=== PATIENT | female | born 1955 | race Caucasian/White ===

== ENCOUNTER 2016-08-07 15:17 | Emergency (ER) | payer BC, OTHER ==
[~2016-08-07] VITALS: Ht 162.6 cm; Wt 75.0 kg
[~2016-08-07 15:17] MED LIST: ACET325T96 PO; ASPCH81X PO; BACL1TAB PO; CTP1 PO; DOCU-94 PO; FURO-85 PO; GLAT1INJ SC; GLAT1INJ SQ; HYDR-5688 PO; MISCCAP80 PO; MRN25 PO; MULT-506 PO; NRV5 PO; ONDA4TAB46 PO; PRLSR20 PO; RSPS5 PO; SERT-234 PO; TIZA2CAP PO; VNCS125 PO
[2016-08-07 15:22] VITALS: TEMP 36.6; Ht 162.6 cm; Wt 75.0 kg
--- NOTE | 2016-08-07 17:50 | EMERGENCY ROOM VISIT NOTE ---
ED Visit Note First contact with patient: 16:45 I did evaluate and examine this patient myself. I did guide management for the patient. I agree with the PA's assessment as discussed. Please see the PAs dictation for further details. I did independently review the x-rays, CAT scan , doppler ultrasound and blood work. The patient is presenting with several months of pain from her neck down her right arm. She is neurologically intact. She had some swelling recently and so sent here for an ultrasound to evaluate for clot. There is no evidence of DVT. It is unclear whether her symptoms are possibly radicular in nature. She does have some mild edematous changes on her CT scan. She was advised follow closely with her doctor. She was discharged with a prescription for [place].
--- NOTE | 2016-08-07 18:38 | EMERGENCY ROOM VISIT NOTE ---
History First contact with patient: 16:45 Chief Complaint: SWELLING TO EXTREMITY Stated Complaint: SWELLING IN RT ARM History of Present Illness The patient is a 61 year old female who presents to the Emergency Room with complaints of pain and swelling in her right arm and hand. She reports that she has had pain in her right arm for the past one month. She does have a history of blood clots and was concerned that she may have a DVT. She reports that she does have an IVC filter. She does not take blood thinners. The pain radiates throughout the entire arm. She reports it is constant and rates the discomfort an 8/10. She has a history of MS and saw her neurologist today, who recommended that she come here for further evaluation of a possible blood clot. She denies any numbness or weakness of the arm. She denies any chest pain or shortness of breath. Review of Systems A complete 10-point Review of Systems was discussed with the patient, with pertinent positives and negatives listed in the History of Present Illness. All remaining Review of Systems questions can be considered negative unless otherwise specified. Past Medical/Surgical History Medical Problems: (1) Abdominal wound dehiscence (2) C. difficile colitis (3) Dyslipidemia (4) Fibromyalgia (5) H/o mild Schatzki ring (6) H/O thoracic outlet syndrome (7) History of DVT (deep vein thrombosis) (8) History of pulmonary embolism (9) Irritable bowel syndrome (IBS) (10) Multiple sclerosis (11) Neurogenic bladder (12) Perforation of sigmoid colon due to diverticulitis (13) Stress incontinence, female Surgical Problems: (1) Colostomy in place (2) H/O colonoscopy (3) H/O cystoscopy (4) H/o EGD (5) History of colectomy (6) History of dental surgery (7) Hx of tubal ligation (8) S/P appendectomy (9) S/P IVC filter Family History Cardiac disorder FATHER FH: aortic aneurysm FATHER FH: brain aneurysm FATHER FH: cancer FATHER MOTHER (breast CA) SISTER (breast CA) Social History Smoking Status: Former Smoker Alcohol Use: none Drug Use: none Marital Status: Housing Status: lives with family Occupation Status: retired Current/Historical Medications Scheduled Amlodipine Besylate (Amlodipine Besylate), 5 MG PO QAM Aspirin (Aspirin Chewable), 81 MG PO DAILY Baclofen (Lioresal), 20 MG PO TID Docusate Sodium (Colace), 100 MG PO BID Glatiramer Acetate (Copaxone), 40 MG SQ UD Multivitamin (Multivitamin), 1 TAB PO DAILY Omeprazole (Prilosec), 20 MG PO DAILY Sertraline (Zoloft), 150 MG PO HS Tizanidine (Zanaflex), 2 MG PO TID Scheduled PRN Clonidine HCl (Clonidine HCl), 0.1 MG PO Q6H PRN for systolic bp > 170 Dronabinol (Dronabinol), 5 MG PO Q6H PRN for nausea Hydrocodone/Acetaminophen 5MG/325MG ([place] 5MG/325MG), 2 TABLETS PO Q6 PRN for Pain Hydrocodone/Acetaminophen 5MG/325MG ([place] 5MG/325MG), 1-2 TABLET PO Q4H PRN for Pain Ondansetron Hcl (Zofran), 4 MG PO Q6 PRN for Nausea Allergies Coded Allergies: Levofloxacin (Verified Allergy, Intermediate, RASH, 08/07/16) as per RN, pt had erythematous rash on abdomen, not there when i saw her pt also complasin of some chest tightness after she got levaquin Chlordiazepoxide (Verified Allergy, Unknown, unsure, 08/07/16) Morphine (Verified Allergy, Unknown, unsure, 08/07/16) has tolerated percocet Sulfa Antibiotics (Verified Allergy, Unknown, Unknown rxn, 08/07/16) Tramadol (Verified Allergy, Unknown, 08/07/16) Physical Exam Vital Signs Date Time Temp Pulse Resp B/P Pulse Ox O2 Delivery O2 Flow Rate FiO2 08/07/16 19:43 84 16 146/78 08/07/16 17:34 77 08/07/16 15:22 36.6 80 18 140/72 98 Room Air Physical Exam VITALS: Vitals are noted on the nurse's note and reviewed by myself. Vital signs stable. GENERAL: This is a 61-year-old female, in no acute distress, nondiaphoretic, well-developed well-nourished. SKIN: Capillary reflex less than 2 seconds. HEART: Regular rate and rhythm without murmurs gallops or rubs. LUNGS: Clear to auscultation bilaterally without wheezes, rales or rhonchi. MUSCULOSKELETAL: No significant tenderness over the right arm. Full range of motion of the right arm. Strength in the right arm is slightly decreased compared to the left. NEURO: Patient was alert and oriented to person place and time. Normal sensation to light and sharp touch. Medical Decision & Procedures ER Provider Diagnostic Interpretation: ULTRASOUND VENOUS DOPPLER ULTRASOUND THE RIGHT UPPER EXTREMITY FINDINGS: The examination is limited from a technical standpoint, as the patient was unable to move her arm, and could not tolerate pressure. No thrombus was visualized in the right internal jugular subclavian axillary radial or ulnar veins. Portions of the brachial basilic veins could not be visualized. IMPRESSION: 1. Technically limited study with poor visualization of portions of the brachial basilic veins. 2. No DVT identified. CT OF THE CERVICAL SPINE IMPRESSION: No evidence of acute fracture or traumatic subluxation. Laboratory Results 08/07/16 18:00 Red Blood Count 4.49, Mean Corpuscular Volume 92.7, Mean Corpuscular Hemoglobin 32.7, Mean Corpuscular Hemoglobin Concent 35.3, Mean Platelet Volume 9.9, Neutrophils (%) (Auto) 73.4, Lymphocytes (%) (Auto) 18.6, Monocytes (%) (Auto) 3.6, Eosinophils (%) (Auto) 3.4, Basophils (%) (Auto) 0.3, Neutrophils # (Auto) 7.37, Lymphocytes # (Auto) 1.87, Monocytes # (Auto) 0.36, Eosinophils # (Auto) 0.34, Basophils # (Auto) 0.03 08/07/16 18:00 Test 08/07/16 18:00 08/07/16 18:42 White Blood Count 10.04 K/uL (4.8-10.8) Red Blood Count 4.49 M/uL (4.2-5.4) Hemoglobin 14.7 g/dL (12.0-16.0) Hematocrit 41.6 % (37-47) Mean Corpuscular Volume 92.7 fL (80-100) Mean Corpuscular Hemoglobin 32.7 pg (25-34) Mean Corpuscular Hemoglobin Concent 35.3 g/dl (32-36) Platelet Count 259 K/uL (130-400) Mean Platelet Volume 9.9 fL (7.4-10.4) Neutrophils (%) (Auto) 73.4 % Lymphocytes (%) (Auto) 18.6 % Monocytes (%) (Auto) 3.6 % Eosinophils (%) (Auto) 3.4 % Basophils (%) (Auto) 0.3 % Neutrophils # (Auto) 7.37 K/uL (1.4-6.5) Lymphocytes # (Auto) 1.87 K/uL (1.2-3.4) Monocytes # (Auto) 0.36 K/uL (0.11-0.59) Eosinophils # (Auto) 0.34 K/uL (0-0.5) Basophils # (Auto) 0.03 K/uL (0-0.2) RDW Standard Deviation 50.0 fL (36.4-46.3) RDW Coefficient of Variation 14.9 % (11.5-14.5) Immature Granulocyte % (Auto) 0.7 % Immature Granulocyte # (Auto) 0.07 K/uL (0.00-0.02) Anion Gap 11.0 mmol/L (3-11) Est Creatinine Clear Calc Drug Dose 89.3 ml/min Estimated GFR () 110.1 Estimated GFR (Non- 95.0 BUN/Creatinine Ratio 34.4 (10-20) Calcium Level 9.1 mg/dl (8.5-10.1) Total Bilirubin 0.6 mg/dl (0.2-1) Aspartate Amino Transf (AST/SGOT) 26 U/L (15-37) Alanine Aminotransferase (ALT/SGPT) 44 U/L (12-78) Alkaline Phosphatase 102 U/L (45-117) Total Protein 8.4 gm/dl (6.4-8.2) Albumin 3.5 gm/dl (3.4-5.0) Globulin 4.9 gm/dl (2.5-4.0) Albumin/Globulin Ratio 0.7 (0.9-2) Prothrombin Time 10.1 SECONDS (9.0-12.0) Prothromb Time International Ratio 0.9 (0.9-1.1) Activated Partial Thromboplast Time 24.7 SECONDS (21.0-31.0) Partial Thromboplastin Ratio 1.0 Medical Decision Differential diagnosis includes DVT, cervical radiculopathy, neuropathy, trauma , among others. The patient was evaluated as above. Labs were drawn and IV access was obtained. Imaging studies were performed and read by radiology as above. The patient was reassessed multiple times during their stay in the emergency department and remained in stable condition. The patient is a 61-year-old female who presents today complaining of right arm pain. Her exam is unremarkable. Labs were performed and were unremarkable. Ultrasound of the right upper extremity was read by radiology with no evidence of DVT. The patient's symptoms are suggestive of cervical radiculopathy. CT of the cervical spine was performed and did show mild degenerative disc disease. The patient was given a short course of [place] for pain. She will follow-up with her primary care provider for further evaluation of her arm pain. Based on the patient's presentation, lab results, and imaging studies, I feel the patient is stable for outpatient treatment. The patient was independently evaluated by Dr. Michael, ED attending physician, who agreed with my assessment and treatment plan. Discharge instructions were reviewed with the patient. The patient verbalized understanding of my assessment and treatment plan and was discharged home in good condition. Impression Primary Impression: Right arm pain Departure Information Dispostion Home / Self-Care Condition GOOD Prescriptions Hydrocodone/Acetaminophen 5MG/325MG ([place] 5MG/325MG) Tab 1-2 TABLET PO Q4H Y for Pain, #15 TAB For Initial Treatment Prov: Marianne Dexter ., ABEBE 08/07/16 Referrals Zuleyma Lozano M.D. (PCP) Patient Instructions My [facility] Additional Instructions You have been prescribed [place] to be used for pain control. Take 1-2 tablets every 4-6 hours as needed for pain. This is a narcotic medication. You cannot drive or consume alcohol while on this medicine. This medicine should only be used for pain that cannot be controlled with [id number] pain medicines. For pain control, you can use the following [id number] medicines (if >12 yo): - Regular strength (325mg/tab) Tylenol (acetaminophen) 2 tabs every 4-6 hours as needed. Do not exceed 12 tablets in a 24 hour period. Avoid taking more than 4 grams (4000 mg) of Tylenol per day. This includes any other sources of acetaminophen you may take on a regular basis. - Regular strength (200 mg/tab) Advil (ibuprofen) 1-2 tabs every 4-6 hours as needed. Do not exceed a dose of 3200 mg per day. You should follow-up with your primary care provider this week for further evaluation of your arm pain. Return to the emergency department With any worsening pain, numbness, weakness or any other new/concerning symptoms.
[2016-08-07 18:44] LABS: BASO % 0.3 %; BASO ABS # 0.03 K/uL (0-0.2); COMPLETE YES; EOS % 3.4 %; HEMATOCRIT 41.6 % (37-47); IG% 0.7 %; LYMPH % 18.6 %; LYMPH ABS # 1.87 K/uL (1.2-3.4); MEAN CELL VOLUME 92.7 fL (80-100); MEAN CORPUSCULAR HEMOGLOBIN 32.7 pg (25-34); MEAN CORPUSCULAR HGB CONC 35.3 g/dl (32-36); MEAN PLATELET VOLUME 9.9 fL (7.4-10.4); MONO % 3.6 %; NEUT % 73.4 %; PLATELET COUNT 259 K/uL (130-400); RED BLOOD COUNT 4.49 M/uL (4.2-5.4); WHITE BLOOD COUNT 10.04 K/uL (4.8-10.8)
[2016-08-07 19:05] LABS: INR 0.9 (0.9-1.1); PROTHROMBIN TIME (PATIENT) 10.1 SECONDS (9.0-12.0)
[2016-08-07 19:12] LABS: BUN/CREATININE RATIO 34.4 (10-20); CALCIUM 9.1 mg/dl (8.5-10.1); CREATININE 0.64 mg/dl (0.60-1.20); POTASSIUM 3.9 mmol/L (3.5-5.1)
[2016-08-07 19:15] LABS: ALB/GLOB RATIO 0.7 (0.9-2)
--- NOTE | 2016-08-07 19:45 | DIAGNOSTIC IMAGING REPORT ---
ULTRASOUND VENOUS DOPPLER ULTRASOUND THE RIGHT UPPER EXTREMITY CLINICAL HISTORY: Right arm pain and swelling. History of DVT. COMPARISON STUDY: No previous studies for comparison. FINDINGS: The examination is limited from a technical standpoint, as the patient was unable to move her arm, and could not tolerate pressure. No thrombus was visualized in the right internal jugular subclavian axillary radial or ulnar veins. Portions of the brachial basilic veins could not be visualized. IMPRESSION: 1. Technically limited study with poor visualization of portions of the brachial basilic veins. 2. No DVT identified. Electronically signed by: Jean-Pierre Lazo M.D. 08/07/2016 7:43 PM Dictated Date/Time: 08/07/2016 7:40 PM
--- NOTE | 2016-08-07 20:27 | DIAGNOSTIC IMAGING REPORT ---
LATERAL VIEW THE CERVICAL SPINE CLINICAL HISTORY: Neck and arm pain COMPARISON STUDY: No previous studies for comparison. FINDINGS: The study is significantly limited from a technical standpoint. There is poor visualization the mid and lower cervical spine. No fractures are visualized the provided images. IMPRESSION: Limited study from a technical standpoint. No fractures or subluxations are visualized on the provided images Electronically signed by: Jean-Pierre Lazo M.D. 08/07/2016 8:26 PM Dictated Date/Time: 08/07/2016 8:25 PM
--- NOTE | 2016-08-07 21:08 | DIAGNOSTIC IMAGING REPORT ---
CT OF THE CERVICAL SPINE CLINICAL HISTORY: Neck and right arm pain COMPARISON STUDY: MRI dated 11/02/2015 CT DOSE: 265.33 mGy.cm TECHNIQUE: CT scan of the cervical spine was performed from the skull base to the thoracic inlet. Images are reviewed in the axial, sagittal, and coronal planes. IV contrast was not administered for this examination. FINDINGS: There is no pneumothorax. There are 2 left apical blebs. The prevertebral soft tissues are normal. No fractures or subluxations are visualized. There are mild degenerative changes present. IMPRESSION: No evidence of acute fracture or traumatic subluxation. Electronically signed by: Jean-Pierre Lazo M.D. 08/07/2016 9:07 PM Dictated Date/Time: 08/07/2016 9:05 PM
[2016-08-07] MEDS ORDERED: HYDR-5688 PO (21:36)
[2016-08-07] MEDS ORDERED: NORCO 5/325MG HOME PACK ONE (21:56)
[2016-08-07] MEDS ORDERED: NORCO 5/325MG HOME PACK PO ONE (22:00)
[2016-08-07 22:03] VITALS: BP 135/78; PULSE 88; O2SAT 94
[2017-02-28] MEDS ORDERED: ONDA8TAB62 SL (15:57)
[2017-02-28] MEDS ORDERED: SITA50TA5 PO (15:57)
[2017-02-28] MEDS ORDERED: TIZA4CAP PO (15:57)
== END 2016-08-07 22:05 | disposition home or self-care (01) ==
LOC: C.EDB 15:19
DX: M79.601 Pain in right arm (principal); M50.30 Other cervical disc degeneration, unspecified cervical region; G35 Multiple sclerosis; Z82.49 Family history of ischemic heart disease and other diseases of the circulatory system; E78.5 Hyperlipidemia, unspecified; Z87.891 Personal history of nicotine dependence; Z86.718 Personal history of other venous thrombosis and embolism; Z79.82 Long term (current) use of aspirin; Z80.3 Family history of malignant neoplasm of breast

== ENCOUNTER → 2016-12-26 | Outpatient (CLI) | payer BC, OTHER ==
[~2016-12-26] MED LIST changes: -ACET325T96 PO; +AMLO-110 PO; -FURO-85 PO; -GLAT1INJ SC; +LISI-461 PO; -MISCCAP80 PO; +ONDA8TAB62 SL; +POLY335019 PO; -RSPS5 PO; +SERT100T PO; +SERT25TA PO; +SITA50TA5 PO; +TIZA4CAP PO; -VNCS125 PO
== END | disposition home or self-care (01) ==
LOC: C.LABSPEC 10:28
PROVIDERS: ATTEND Physician Assistant
DX: R30.0 Dysuria (principal)

== ENCOUNTER → 2017-02-20 | Outpatient (CLI) | payer BC, OTHER ==
[2017-02-20 18:04] LABS: ALB/GLOB RATIO 0.5 (0.9-2); ALKALINE PHOSPHATASE 95 U/L (45-117); ALT/SGPT 35 U/L (12-78); AST/SGOT 31 U/L (15-37); BLOOD UREA NITROGEN 21 mg/dl (7-18); BUN/CREATININE RATIO 21.2 (10-20); CALCIUM 9.3 mg/dl (8.5-10.1); CARBON DIOXIDE 22 mmol/L (21-32); CHLORIDE 102 mmol/L (98-107); CHOLESTEROL 235 mg/dl (0-200); CHOLESTEROL/HDL RATIO 7.8; CREATININE 0.99 mg/dl (0.60-1.20); HDL CHOLESTEROL 30 mg/dl; POTASSIUM 4.5 mmol/L (3.5-5.1); SODIUM 132 mmol/L (136-145); TRIGLYCERIDES 404 mg/dl (0-150)
[2017-02-20 18:13] LABS: GLUCOSE 525 mg/dl (70-99)
[2017-02-20 18:28] LABS: BETA-HYDROXYBUTYRATE 1.73 mg/dL (0.2-2.81)
== END | disposition home or self-care (01) ==
LOC: C.LABPBG 13:40
PROVIDERS: ATTEND Physician Assistant
DX: Z00.00 Encounter for general adult medical examination without abnormal findings (principal); E55.9 Vitamin D deficiency, unspecified

== ENCOUNTER 2017-02-21 05:07 | Inpatient (IN) | payer BC, OTHER ==
[~2017-02-21] VITALS: Ht 162.6 cm; Wt 91.9 kg
[~2017-02-21 05:07] MED LIST changes: -AMLO-110 PO; -LISI-461 PO; -ONDA8TAB62 SL; -POLY335019 PO; -SERT100T PO; -SERT25TA PO; -SITA50TA5 PO; -TIZA4CAP PO
[2017-02-21] MEDS ORDERED: SODIUM CHLORIDE 0.9% 1000ML 1,000 ML IV STA (05:13)
--- NOTE | 2017-02-21 05:22 | EMERGENCY ROOM VISIT NOTE ---
History Report prepared by Leslie: Art Arreola Under the Supervision of: Dr. Zhang Roach M.D. First contact with patient: 05:08 Chief Complaint: ILLNESS Stated Complaint: VOMIT/NAUSEA/CHEST PRESSURE History of Present Illness The patient is a 62 year old female who presents to the Emergency Room with complaints of resolving nausea that began prior to arrival. The patient was brought into the ED via EMS who state that the patient was experiencing hyperglycemia and nausea, which lead to vomiting. They report that she had her colostomy bag changed prior to arrival and report that it was dark colored. EMS reports that they gave her 600 ml of Saline and 4 mg of Zofran on the way to the ED. The patient states that her nausea is better than before, but admits that she is experiencing chest pressure, abdominal soreness, and pain to her lower extremities. EMS reports that she does not wear oxygen at home. The patient denies walking at home. She admits to a history of a colonoscopy. Per the patient's report, she had perforated diverticulitis a year ago, which resulted in her colostomy bag. Since her visit, she has had multiple UTIs. Source of History: patient Onset: prior to arrival Position: other (global) Timing: other (resolving) Associated Symptoms: + chest pain, + vomiting, + abdominal pain Review of Systems See HPI for pertinent positives & negatives. A total of 10 systems reviewed and were otherwise negative. Past Medical & Surgical Medical Problems: (1) Abdominal wound dehiscence (2) C. difficile colitis (3) Dyslipidemia (4) Fibromyalgia (5) H/o mild Schatzki ring (6) H/O thoracic outlet syndrome (7) History of DVT (deep vein thrombosis) (8) History of pulmonary embolism (9) Irritable bowel syndrome (IBS) (10) Multiple sclerosis (11) Neurogenic bladder (12) Perforation of sigmoid colon due to diverticulitis (13) Stress incontinence, female Surgical Problems: (1) Colostomy in place (2) H/O colonoscopy (3) H/O cystoscopy (4) H/o EGD (5) History of colectomy (6) History of dental surgery (7) Hx of tubal ligation (8) S/P appendectomy (9) S/P IVC filter Family History Cardiac disorder FATHER FH: aortic aneurysm FATHER FH: brain aneurysm FATHER FH: cancer FATHER MOTHER (breast CA) SISTER (breast CA) Social History Smoking Status: Former Smoker Alcohol Use: none Drug Use: none Marital Status: Housing Status: lives with family Occupation Status: retired Current/Historical Medications Scheduled Amlodipine (Norvasc), 5 MG PO DAILY Baclofen (Lioresal), 20 MG PO QID Docusate Sodium (Colace), 100 MG PO BID Glatiramer Acetate (Copaxone), 40 MG SQ 3XWK Lisinopril (Zestril), 10 MG PO HS Omeprazole (Prilosec), 20 MG PO DAILY Polyethylene Glycol 3350 (Miralax), 17 GM PO DAILY Sertraline Hcl (Zoloft), 25 MG PO HS Sertraline Hcl (Zoloft), 100 MG PO HS Tizanidine (Zanaflex), 4 MG PO TID Allergies Coded Allergies: Levofloxacin (Verified Allergy, Intermediate, RASH, 02/21/17) as per RN, pt had erythematous rash on abdomen, not there when i saw her pt also complasin of some chest tightness after she got levaquin Chlordiazepoxide (Verified Allergy, Unknown, unsure, 02/21/17) Morphine (Verified Allergy, Unknown, unsure, 02/21/17) has tolerated percocet Sulfa Antibiotics (Verified Allergy, Unknown, Unknown rxn, 02/21/17) Tramadol (Verified Allergy, Unknown, 02/21/17) Physical Exam Vital Signs Date Time Temp Pulse Resp B/P (MAP) Pulse Ox O2 Delivery O2 Flow Rate FiO2 02/21/17 07:03 109 16 139/69 94 02/21/17 06:37 107 19 92 02/21/17 06:30 167/90 02/21/17 05:38 37.7 112 18 184/98 91 Room Air 02/21/17 05:37 107 16 91 02/21/17 05:30 173/83 02/21/17 05:23 110 02/21/17 05:19 184/98 Physical Exam GENERAL: Chronically ill appearing in mild distress, wearing sunglasses. HEENT: No acute trauma, normocephalic atraumatic, mucous membranes moist, no nasal congestion, no scleral icterus. NECK: No stridor, no adenopathy, no meningismus, trachea is midline. LUNGS: No dyspnea. Clear to auscultation and equal bilaterally. No wheeze, no rhonchi. HEART: Tachycardic and regular rhythm. No murmurs, rubs, gallops appreciated. ABDOMEN: Soft, nontender, distended abdomen with hyperactive bowel sounds. Ostomy in left lower abdomen without output, no masses appreciated, no peritonitis. BACK: No midline tenderness, no CVA tenderness EXTREMITIES: Normal motion all extremities, no cyanosis, no edema. NEUROLOGIC: Alert and oriented, no acute motor or sensory deficits, no focal weakness, cranial nerves grossly intact. SKIN: No rash, no jaundice, no diaphoresis. Medical Decision & Procedures ER Provider Diagnostic Interpretation: Radiology results and stated below per my review and radiologist interpretation: X ray results are stated below per my interpretation and the radiologist's interpretation. CHEST 1 VIEW: No acute infiltrate other than a linear density of the left lower lung base. Poor inspiratory effort. No pneumothorax. CT ABD/PELVIS IV CONTRAST ONLY CLINICAL HISTORY: Vomiting. Poor ostomy output. COMPARISON STUDY: 12/17/2015 TECHNIQUE: Following the IV administration of 116 mL of Optiray-320, CT scan of the abdomen and pelvis was performed from the lung bases to the proximal femurs. Images are reviewed in the axial, sagittal, and coronal planes. IV contrast was administered without complication. A dose lowering technique was utilized adhering to the principles of ALARA. CT DOSE: 953.65 mGy.cm FINDINGS: Lower chest: There are bibasal atelectatic changes. Liver: There is mild hepatic steatosis. No focal masses are visualized. Gallbladder: Unremarkable. Spleen: Normal in size and attenuation. Pancreas: Unremarkable. Adrenal glands: Unremarkable. Kidneys: There is a 21 mm left renal hypodensity. This slightly exceeds water attenuation and is therefore indeterminate. There is an 11 mm left renal hypodensity. This also slightly exceeds water attenuation and is therefore indeterminate. Bowel: There is a left lower quadrant colostomy. There are no transition zones indicate bowel obstruction. The appendix is not visualized certainty. There are no findings to indicate acute appendicitis. There are no findings to indicate acute diverticulitis. There is a Rosas's pouch. Peritoneum: There is no intraperitoneal free air or abdominal ascites. There is a small fat-containing umbilical hernia. Vasculature: There is indwelling IVC filter. Adenopathy: None. Pelvic viscera: There is a soft tissue multicystic structure within the right adnexal region which may be ovarian. This measures 5.8 cm in maximal diameter. Bowel loops appear adherent to this. Correlation with pelvic sonography, a repeat CT scan with oral contrast, or an MRI should be considered. Skeletal structures: No destructive osseous lesions are seen. IMPRESSION: 1. No evidence of bowel obstruction. No evidence of free air 2. Postsurgical changes with a left lower quadrant ostomy 3. Soft tissue structure containing cystic foci within the right adnexal region, possibly ovarian. This measures 5.8 cm in maximal diameter. There are adjacent adherent bowel loops. Further evaluation of this abnormality is recommended, as an ovarian neoplastic process cannot be excluded. 4. Bilateral renal hypodense lesions. These slightly exceed water attenuation and are therefore indeterminate Electronically signed by: Jean-Pierre Lazo M.D. 02/21/2017 7:08 AM Dictated Date/Time: 02/21/2017 6:52 AM Laboratory Results 02/21/17 05:25 Red Blood Count 4.24, Mean Corpuscular Volume 92.9, Mean Corpuscular Hemoglobin 33.5, Mean Corpuscular Hemoglobin Concent 36.0, Mean Platelet Volume 9.9, Neutrophils (%) (Auto) 90.7, Lymphocytes (%) (Auto) 5.2, Monocytes (%) (Auto) 2.6, Eosinophils (%) (Auto) 0.1, Basophils (%) (Auto) 0.2, Neutrophils # (Auto) 9.12, Lymphocytes # (Auto) 0.52, Monocytes # (Auto) 0.26, Eosinophils # (Auto) 0.01, Basophils # (Auto) 0.02 02/21/17 05:25 Test 02/21/17 05:25 02/21/17 05:26 02/21/17 05:35 02/21/17 06:40 White Blood Count 10.05 K/uL (4.8-10.8) Red Blood Count 4.24 M/uL (4.2-5.4) Hemoglobin 14.2 g/dL (12.0-16.0) Hematocrit 39.4 % (37-47) Mean Corpuscular Volume 92.9 fL (80-100) Mean Corpuscular Hemoglobin 33.5 pg (25-34) Mean Corpuscular Hemoglobin Concent 36.0 g/dl (32-36) Platelet Count 224 K/uL (130-400) Mean Platelet Volume 9.9 fL (7.4-10.4) Neutrophils (%) (Auto) 90.7 % Lymphocytes (%) (Auto) 5.2 % Monocytes (%) (Auto) 2.6 % Eosinophils (%) (Auto) 0.1 % Basophils (%) (Auto) 0.2 % Neutrophils # (Auto) 9.12 K/uL (1.4-6.5) Lymphocytes # (Auto) 0.52 K/uL (1.2-3.4) Monocytes # (Auto) 0.26 K/uL (0.11-0.59) Eosinophils # (Auto) 0.01 K/uL (0-0.5) Basophils # (Auto) 0.02 K/uL (0-0.2) RDW Standard Deviation 49.8 fL (36.4-46.3) RDW Coefficient of Variation 14.8 % (11.5-14.5) Immature Granulocyte % (Auto) 1.2 % Immature Granulocyte # (Auto) 0.12 K/uL (0.00-0.02) Prothrombin Time 10.7 SECONDS (9.0-12.0) Prothromb Time International Ratio 1.0 (0.9-1.1) Est Creatinine Clear Calc Drug Dose 86.7 ml/min Estimated GFR () 106.1 Estimated GFR (Non- 91.6 BUN/Creatinine Ratio 19.9 (10-20) Calcium Level 8.7 mg/dl (8.5-10.1) Magnesium Level 2.1 mg/dl (1.8-2.4) Total Bilirubin 1.0 mg/dl (0.2-1) Direct Bilirubin 0.2 mg/dl (0-0.2) Aspartate Amino Transf (AST/SGOT) 33 U/L (15-37) Alanine Aminotransferase (ALT/SGPT) 35 U/L (12-78) Alkaline Phosphatase 106 U/L (45-117) Total Creatine Kinase 567 U/L (26-192) Creatine Kinase MB 0.9 ng/ml (0.5-3.6) Creatine Kinase MB Ratio 0.2 (0-3.0) Troponin I < 0.015 ng/ml (0-0.045) Total Protein 8.4 gm/dl (6.4-8.2) Albumin 2.7 gm/dl (3.4-5.0) Beta-Hydroxybutyric Acid 22.16 mg/dL (0.2-2.81) Bedside Lactic Acid Venous 0.95 mmol/L (0.90-1.70) Bedside Hemoglobin 14.6 g/dl (12.0-16.0) Bedside Hematocrit 43 % (37-47) Bedside Sodium 137 mEq/L (135-144) Bedside Potassium 4.3 mEq/L (3.3-5.0) Bedside Chloride 103 mEq/L (101-112) Bedside Total CO2 20 mEq/l (24-31) Anion Gap 19.0 mmol/L (16-25) Bedside Blood Urea Nitrogen 15 mg/dl (7-18) Bedside Creatinine 0.5 mg/dl (0.6-1.3) Bedside Glucose (other) 431 mg/dl (70-99) Bedside Ionized Calcium (Nam) 1.11 mmol/l (1.12-1.32) Urine Color YELLOW Urine Appearance CLEAR (CLEAR) Urine pH 5.0 (4.5-7.5) Urine Specific [place] > 1.045 (1.000-1.030) Urine Protein TRACE (NEG) Urine Glucose (UA) 3+ (NEG) Urine Ketones 2+ (NEG) Urine Occult Blood 1+ (NEG) Urine Nitrite NEG (NEG) Urine Bilirubin NEG (NEG) Urine Urobilinogen NEG (NEG) Urine Leukocyte Esterase SMALL (NEG) Urine WBC (Auto) >30 /hpf (0-5) Urine RBC (Auto) 0-4 /hpf (0-4) Urine Hyaline Casts (Auto) 1-5 /lpf (0-5) Urine Epithelial Cells (Auto) 0-5 /lpf (0-5) Urine Bacteria (Auto) NEG (NEG) Laboratory results as reviewed by me. Medications Administered Medications (Trade) Dose Ordered Sig/Mo Route Start Time Stop Time Status Last Admin Dose Admin Sodium Chloride 1,000 ml @ 999 mls/hr Q1H1M STAT IV 02/21/17 05:13 02/21/17 06:13 DC 02/21/17 05:13 999 MLS/HR Ondansetron HCl (Zofran Inj) 4 mg NOW STAT IV 02/21/17 05:50 02/21/17 05:51 DC 02/21/17 05:50 4 MG Insulin Human Regular (novoLIN-R U-100 PER UNIT) 10 units NOW STAT IV 02/21/17 06:32 02/21/17 06:34 DC 02/21/17 06:49 10 UNITS ECG Indication: vomiting Rate (beats per minute): 111 Rhythm: sinus tachycardia Findings: no acute ischemic change, no ectopy ED Course 0512: The patient was evaluated in room B06. A complete history and physical exam was performed. 0513: Sodium Chloride 1000 ml @ 999 mls/hr IV. 0550: Zofran Injection 4 mg IV. 0632: Insulin Human Regular 10 units IV. 0658: I reevaluated the patient and she is resting comfortably. She is no longer vomiting. 07: I called medicine regarding the patient's case. Medical Decision Differential: Gastroenteritis, Food Borne, Esophageal Perforation, , Electrolyte Abnormality, Dehydration, Intraabdominal Infection, UTI/ Pyelonephritis, Bowel Obstruction, Biliary Pathology, amongst other pathology entertained. 62 yr old female with history of MS and episode of perforated diverticulitis last summer resulting in colostomy. Arrives vomiting with fever at home. Vomiting requiring several rounds IV Zofran. She is quite hyperglycemic with no history of diabetes, thus given IV fluids and IV insulin to help correct this. She is not in overt DKA. Lactic acid, wbc and temp normal here. BP moderately elevated. CT abdo pelv reveals no obstructions nor clear infection, however there is a new 5 cm mass in area of right Ovary. I do not feel that this mass is the cause of her symptoms. I feel she has UTI that is causing this issue. With vomiting, now onset hyperglycemia, and her chronic medical issues I feel that she will need to come in to hospital for further treatment/ evaluation. Patient with Pansensitive Ecoli in most recent UCx thus will treat with Rocephin. Of note, no stool in ostomy on arrival but on arrival he notes he had emptied it just prior to arrival. Medication Reconcilliation Current Medication List: was personally reviewed by me Blood Pressure Screening Patient's blood pressure: Elevated blood pressure Being evaluated by hospitalist. Impression Primary Impression: Urinary tract infection Additional Impressions: Intractable vomiting Hyperglycemia Ovarian mass, right Scribe Attestation The scribe's documentation has been prepared under my direction and personally reviewed by me in its entirety. I confirm that the note above accurately reflects all work, treatment, procedures, and medical decision making performed by me. Departure Information Dispostion Still a Patient Referrals Levon Schwarz D.O. (PCP) Patient Instructions My [facility] Problem Qualifiers
[2017-02-21] MEDS ORDERED: OPTIRAY 320 IV PRN (05:30)
[2017-02-21 05:47] LABS: HEMATOCRIT 39.4 % (37-47); MEAN CELL VOLUME 92.9 fL (80-100); MEAN CORPUSCULAR HEMOGLOBIN 33.5 pg (25-34); MEAN PLATELET VOLUME 9.9 fL (7.4-10.4); PLATELET COUNT 224 K/uL (130-400); RED BLOOD COUNT 4.24 M/uL (4.2-5.4); WHITE BLOOD COUNT 10.05 K/uL (4.8-10.8)
[2017-02-21 05:48] LABS: ISTAT CREATININE 0.5 mg/dl (0.6-1.3); ISTAT HEMOGLOBIN 14.6 g/dl (12.0-16.0); ISTAT IONIZED CALCIUM 1.11 mmol/l (1.12-1.32)
[2017-02-21] MEDS ORDERED: ONDANSETRON INJ 2 MG/ML 2 ML VIAL IV STA (05:50)
[2017-02-21 06:08] LABS: PROTHROMBIN TIME (PATIENT) 10.7 SECONDS (9.0-12.0)
[2017-02-21 06:14] LABS: BASO % 0.2 %; BASO ABS # 0.02 K/uL (0-0.2); COMPLETE YES; EOS % 0.1 %; IG% 1.2 %; LYMPH % 5.2 %; LYMPH ABS # 0.52 K/uL (1.2-3.4); MONO % 2.6 %; NEUT % 90.7 %
[2017-02-21 06:32] LABS: ALKALINE PHOSPHATASE 106 U/L (45-117); ALT/SGPT 35 U/L (12-78); AST/SGOT 33 U/L (15-37); BLOOD UREA NITROGEN 14 mg/dl (7-18); BUN/CREATININE RATIO 19.9 (10-20); CALCIUM 8.7 mg/dl (8.5-10.1); CARBON DIOXIDE 21 mmol/L (21-32); CHLORIDE 104 mmol/L (98-107); CKMB/CK RATIO 0.2 (0-3.0); GLUCOSE 417 mg/dl (70-99); MAGNESIUM 2.1 mg/dl (1.8-2.4); POTASSIUM 4.2 mmol/L (3.5-5.1); SODIUM 135 mmol/L (136-145)
[2017-02-21] MEDS ORDERED: NovoLIN-R INSULIN PER UNIT CHARGE IV STA (06:32)
--- NOTE | 2017-02-21 06:36 | DIAGNOSTIC IMAGING REPORT ---
CHEST ONE VIEW PORTABLE CLINICAL HISTORY: fever VOMITING COMPARISON STUDY: 12/11/2015 FINDINGS: The heart is normal in size. There is no failure. There is no lobar consolidation. There are linear opacities the left lung base, likely representing subsegmental atelectatic change. There are no significant pleural effusions.[ IMPRESSION: Left basilar subsegmental atelectasis. Electronically signed by: Jean-Pierre Lazo M.D. 02/21/2017 6:35 AM Dictated Date/Time: 02/21/2017 6:34 AM
[2017-02-21] MEDS ORDERED: SERT25TA PO (06:44)
[2017-02-21] MEDS ORDERED: LISI-461 PO (06:44)
[2017-02-21] MEDS ORDERED: SERT100T PO (06:44)
[2017-02-21] MEDS ORDERED: AMLO-110 PO (06:45)
[2017-02-21] MEDS ORDERED: TIZA4CAP PO (06:46)
[2017-02-21] MEDS ORDERED: POLY335019 PO (06:48)
[2017-02-21 06:59] LABS: BETA-HYDROXYBUTYRATE 22.16 mg/dL (0.2-2.81)
--- NOTE | 2017-02-21 07:09 | DIAGNOSTIC IMAGING REPORT ---
CT ABD/PELVIS IV CONTRAST ONLY CLINICAL HISTORY: Vomiting. Poor ostomy output. COMPARISON STUDY: 12/17/2015 TECHNIQUE: Following the IV administration of 116 mL of Optiray-320, CT scan of the abdomen and pelvis was performed from the lung bases to the proximal femurs. Images are reviewed in the axial, sagittal, and coronal planes. IV contrast was administered without complication. A dose lowering technique was utilized adhering to the principles of ALARA. CT DOSE: 953.65 mGy.cm FINDINGS: Lower chest: There are bibasal atelectatic changes. Liver: There is mild hepatic steatosis. No focal masses are visualized. Gallbladder: Unremarkable. Spleen: Normal in size and attenuation. Pancreas: Unremarkable. Adrenal glands: Unremarkable. Kidneys: There is a 21 mm left renal hypodensity. This slightly exceeds water attenuation and is therefore indeterminate. There is an 11 mm left renal hypodensity. This also slightly exceeds water attenuation and is therefore indeterminate. Bowel: There is a left lower quadrant colostomy. There are no transition zones indicate bowel obstruction. The appendix is not visualized certainty. There are no findings to indicate acute appendicitis. There are no findings to indicate acute diverticulitis. There is a Rosas's pouch. Peritoneum: There is no intraperitoneal free air or abdominal ascites. There is a small fat-containing umbilical hernia. Vasculature: There is indwelling IVC filter. Adenopathy: None. Pelvic viscera: There is a soft tissue multicystic structure within the right adnexal region which may be ovarian. This measures 5.8 cm in maximal diameter. Bowel loops appear adherent to this. Correlation with pelvic sonography, a repeat CT scan with oral contrast, or an MRI should be considered. Skeletal structures: No destructive osseous lesions are seen. IMPRESSION: 1. No evidence of bowel obstruction. No evidence of free air 2. Postsurgical changes with a left lower quadrant ostomy 3. Soft tissue structure containing cystic foci within the right adnexal region, possibly ovarian. This measures 5.8 cm in maximal diameter. There are adjacent adherent bowel loops. Further evaluation of this abnormality is recommended, as an ovarian neoplastic process cannot be excluded. 4. Bilateral renal hypodense lesions. These slightly exceed water attenuation and are therefore indeterminate Electronically signed by: Jean-Pierre Lazo M.D. 02/21/2017 7:08 AM Dictated Date/Time: 02/21/2017 6:52 AM
[2017-02-21 07:27] LABS: URINE APPEARANCE CLEAR (CLEAR); URINE BILIRUBIN NEG (NEG); URINE COLOR YELLOW; URINE EPITHELIAL CELL AUTO 0-5 /lpf (0-5); URINE NITRITE NEG (NEG); URINE SPECIFIC GRAVITY > 1.045 (1.000-1.030); UROBILINOGEN NEG (NEG); ZZURINE CULT IF INDIC CATH YES
[2017-02-21 07:31] LABS: MANUAL MICROSCOPIC REQUIRED? NO; REVIEW REQ? NO
[2017-02-21] MEDS ORDERED: CEFTRIAXONE SOD INJ 1 GM ADDVIAL IV STA (07:33)
[2017-02-21 08:00] VITALS: O2SAT 93; Ht 162.6 cm; Wt 91.9 kg
[2017-02-21] MEDS ORDERED: ACETAMINOPHEN 325 MG TAB PO PRN (08:45)
[2017-02-21] MEDS ORDERED: DEXTROSE 50% 50 ML SYR IV PRN (09:00)
[2017-02-21] MEDS ORDERED: GLUCAGON FOR INJ 1 MG VIAL SQ PRN (09:00)
[2017-02-21] MEDS ORDERED: GLUCOSE 40% GEL 15 GM TUBE PO PRN (09:00)
[2017-02-21] MEDS ORDERED: GLUCOSE 10 TABS/TUBE PO PRN (09:00)
[2017-02-21 09:33] LABS: ESTIMATED AVERAGE GLUCOSE 303 mg/dl; HA1C FLAG Normal (Normal)
[2017-02-21 10:40] VITALS: BP 154/82; PULSE 111; TEMP 37.5; O2SAT 92
[2017-02-21] MEDS: AMLODIPINE BESYLATE 5 MG TAB PO SCH (11:55)
[2017-02-21] MEDS: POLYETHYLENE (MIRALAX) 17 GM PACK PO SCH (11:55)
[2017-02-21] MEDS: PANTOprazole SOD 40 MG TAB PO SCH (11:55)
[2017-02-21] MEDS: SODIUM CHLORIDE 0.9% 1000ML 1,000 ML IV SCH ×3 (11:56→21:27)
[2017-02-21] MEDS: BACLOFEN 10 MG TAB PO SCH ×3 (11:56→21:20)
[2017-02-21] MEDS: ONDANSETRON INJ 2 MG/ML 2 ML VIAL IV PRN ×2 (11:57→21:48)
[2017-02-21] MEDS: ENOXAPARIN 40 MG/0.4 ML SYR SC SCH (12:50)
[2017-02-21] MEDS: INSULIN ASPART 100 UNITS/ML 3 ML PEN SC SCH ×3 (12:51→21:26)
--- NOTE | 2017-02-21 13:06 | History and Physical ---
History & Physical Date & Time of Service: Feb 21, 2017 at 13:06 Chief Complaint: Chest Tightness, Hyperglycemia, Uti Primary Care Physician: No Doctor, Assigned History of Present Illness Patient is a 62yo Female with a PMH of Multiple Sclerosis, HTN, h/o diverticulitis and perforation s/p ostomy, h/o UTIs 2/2 neurogenic bladder who presents with nausea and vomiting that started yesterday. Started to experience nausea and vomiting last evening, with associated chills, sweating, abdominal pain and increased urination. Continued overnight until patient was brought in by EMS this morning. During transport to ED, patient was found to be hyperglycemic in the 400s. No prior history of diabetes. Once in ED, patient continued to experience nausea (without vomiting), diffuse abdominal discomfort and increased urination. Patient has a history of multiple UTIs 2/2 neurogenic bladder and usually experiences increased urination with a UTI. Is incontinent most of the time and wears depends. Also endorses a chest "tightness" on the left that is non-radiating and is not worse with inspiration or positional changes. Rates chest tightness as a 6/10. In ED, was found to have a UTI and was started on Rocephin. Also given 10 U regular insulin for hyperglycemia. Was diagnosed with relapsing, remitting MS in late 2014 and has multiple complications including: significant motor weakness, impaired visual acuity bilaterally, neurogenic bladder and some cognitive impairment. Is alert and oriented to person and place at baseline. Past Medical/Surgical History Medical Problems: (1) Dyslipidemia Status: Chronic (2) Fibromyalgia Status: Chronic (3) H/o mild Schatzki ring Status: Chronic (4) H/O thoracic outlet syndrome Status: Chronic (5) History of DVT (deep vein thrombosis) Permanent Comment: RLE May 2015 Status: Chronic (6) History of pulmonary embolism Permanent Comment: bilateral 06/2015 Status: Chronic (7) Irritable bowel syndrome (IBS) Status: Chronic (8) Multiple sclerosis Status: Chronic (9) Neurogenic bladder Status: Chronic (10) Perforation of sigmoid colon due to diverticulitis Permanent Comment: s/p exploratory laparatomy, sigmoid colectomy and colostomy Status: Chronic (11) Stress incontinence, female Status: Chronic Surgical Problems: (1) Colostomy in place Status: Chronic (2) H/O colonoscopy Status: Chronic (3) H/O cystoscopy Status: Chronic (4) H/o EGD Status: Chronic (5) History of colectomy Status: Chronic (6) History of dental surgery Status: Chronic (7) Hx of tubal ligation Status: Chronic (8) S/P appendectomy Status: Chronic (9) S/P IVC filter Status: Chronic Family History Cardiac disorder FATHER FH: aortic aneurysm FATHER FH: brain aneurysm FATHER FH: cancer FATHER MOTHER (breast CA) SISTER (breast CA) Social History Smoking Status: Former Smoker Drug Use: none Marital Status: Housing status: lives with family Occupational Status: retired Immunizations History of Tetanus Vaccine?: No History of Pneumococcal: No History of Hepatitis B Vaccine: No Multi-Drug Resistant Organisms History of MDRO: No Allergies Coded Allergies: Levofloxacin (Verified Allergy, Intermediate, RASH, 02/21/17) as per RN, pt had erythematous rash on abdomen, not there when i saw her pt also complasin of some chest tightness after she got levaquin Chlordiazepoxide (Verified Allergy, Unknown, unsure, 02/21/17) Morphine (Verified Allergy, Unknown, unsure, 02/21/17) has tolerated percocet Sulfa Antibiotics (Verified Allergy, Unknown, Unknown rxn, 02/21/17) Tramadol (Verified Allergy, Unknown, 02/21/17) Home Medications Scheduled Amlodipine (Norvasc), 5 MG PO DAILY Baclofen (Lioresal), 20 MG PO QID Docusate Sodium (Colace), 100 MG PO BID Glatiramer Acetate (Copaxone), 40 MG SQ 3XWK Lisinopril (Zestril), 10 MG PO HS Omeprazole (Prilosec), 20 MG PO DAILY Polyethylene Glycol 3350 (Miralax), 17 GM PO DAILY Sertraline Hcl (Zoloft), 25 MG PO HS Sertraline Hcl (Zoloft), 100 MG PO HS Tizanidine (Zanaflex), 4 MG PO TID Review of Systems Ten systems reviewed and negative except as noted in the HPI. Physical Exam Vital Signs Date Time Temp Pulse Resp B/P (MAP) Pulse Ox O2 Delivery O2 Flow Rate FiO2 02/21/17 12:00 Room Air 02/21/17 10:40 37.5 111 18 154/82 (106) 92 Room Air 02/21/17 09:30 105 16 175/91 93 Room Air 02/21/17 08:51 105 02/21/17 08:38 87 16 174/87 92 02/21/17 08:08 107 16 150/63 93 Room Air 02/21/17 08:00 93 Room Air 02/21/17 07:03 109 16 139/69 94 02/21/17 06:37 107 19 92 02/21/17 06:30 167/90 02/21/17 05:38 37.7 112 18 184/98 91 Room Air 02/21/17 05:37 107 16 91 02/21/17 05:30 173/83 02/21/17 05:23 110 02/21/17 05:19 184/98 General Appearance: + moderate distress (nauseated with any movement on exam ) Head: normocephalic, atraumatic Eyes: normal inspection (decreased visual acuity 2/2 MS) ENT: hearing grossly normal Neck: supple, trachea midline Respiratory/Chest: chest non-tender, lungs clear, normal breath sounds, no respiratory distress Cardiovascular: regular rate, rhythm, no murmur Abdomen/GI: normal bowel sounds (LLQ Ostomy noted without output), soft, no organomegaly, + tenderness (diffusely tender to palpation) Back: normal inspection Extremities/Musculoskelatal: no calf tenderness, no pedal edema, + pertinent finding (Skin breakdown with serosanguinous discharge on the R posterior thigh/ buttocks ) Neurologic/Psych: alert ( Alert & oriented to person and place at baseline. ), + motor weakness (Chronic, 2/2 MS. Wheelchair bound, limited use of UE ), + depressed affect Skin: normal color, warm/dry Diagnostics Laboratory Results Results Past 24 Hours Test 02/21/17 05:25 02/21/17 05:26 02/21/17 05:35 02/21/17 06:40 Range/Units White Blood Count 10.05 4.8-10.8 K/uL Red Blood Count 4.24 4.2-5.4 M/uL Hemoglobin 14.2 12.0-16.0 g/dL Hematocrit 39.4 37-47 % Mean Corpuscular Volume 92.9 80-100 fL Mean Corpuscular Hemoglobin 33.5 25-34 pg Mean Corpuscular Hemoglobin Concent 36.0 32-36 g/dl Platelet Count 224 130-400 K/uL Mean Platelet Volume 9.9 7.4-10.4 fL Neutrophils (%) (Auto) 90.7 % Lymphocytes (%) (Auto) 5.2 % Monocytes (%) (Auto) 2.6 % Eosinophils (%) (Auto) 0.1 % Basophils (%) (Auto) 0.2 % Neutrophils # (Auto) 9.12 1.4-6.5 K/uL Lymphocytes # (Auto) 0.52 1.2-3.4 K/uL Monocytes # (Auto) 0.26 0.11-0.59 K/uL Eosinophils # (Auto) 0.01 0-0.5 K/uL Basophils # (Auto) 0.02 0-0.2 K/uL RDW Standard Deviation 49.8 36.4-46.3 fL RDW Coefficient of Variation 14.8 11.5-14.5 % Immature Granulocyte % (Auto) 1.2 % Immature Granulocyte # (Auto) 0.12 0.00-0.02 K/uL Prothrombin Time 10.7 9.0-12.0 SECONDS Prothromb Time International Ratio 1.0 0.9-1.1 Sodium Level 135 136-145 mmol/L Potassium Level 4.2 3.5-5.1 mmol/L Chloride Level 104 98-107 mmol/L Carbon Dioxide Level 21 21-32 mmol/L Anion Gap 10.0 19.0 16-25 mmol/L Blood Urea Nitrogen 14 7-18 mg/dl Creatinine 0.70 0.60-1.20 mg/dl Est Creatinine Clear Calc Drug Dose 86.7 ml/min Estimated GFR () 106.1 Estimated GFR (Non- 91.6 BUN/Creatinine Ratio 19.9 10-20 Random Glucose 417 70-99 mg/dl Estimated Average Glucose 303 mg/dl Hemoglobin A1c 12.2 4.5-5.6 % Osmolality 303 280-300 mOsm/kg Calcium Level 8.7 8.5-10.1 mg/dl Magnesium Level 2.1 1.8-2.4 mg/dl Total Bilirubin 1.0 0.2-1 mg/dl Direct Bilirubin 0.2 0-0.2 mg/dl Aspartate Amino Transf (AST/SGOT) 33 15-37 U/L Alanine Aminotransferase (ALT/SGPT) 35 12-78 U/L Alkaline Phosphatase 106 45-117 U/L Total Creatine Kinase 567 26-192 U/L Creatine Kinase MB 0.9 0.5-3.6 ng/ml Creatine Kinase MB Ratio 0.2 0-3.0 Troponin I < 0.015 0-0.045 ng/ml Total Protein 8.4 6.4-8.2 gm/dl Albumin 2.7 3.4-5.0 gm/dl Beta-Hydroxybutyric Acid 22.16 0.2-2.81 mg/dL Hepatitis C Antibody Screen NEG NEG Bedside Lactic Acid Venous 0.95 0.90-1.70 mmol/L Bedside Hemoglobin 14.6 12.0-16.0 g/dl Bedside Hematocrit 43 37-47 % Bedside Sodium 137 135-144 mEq/L Bedside Potassium 4.3 3.3-5.0 mEq/L Bedside Chloride 103 101-112 mEq/L Bedside Total CO2 20 24-31 mEq/l Bedside Blood Urea Nitrogen 15 7-18 mg/dl Bedside Creatinine 0.5 0.6-1.3 mg/dl Bedside Glucose (other) 431 70-99 mg/dl Bedside Ionized Calcium (Nam) 1.11 1.12-1.32 mmol/l Urine Color YELLOW Urine Appearance CLEAR CLEAR Urine pH 5.0 4.5-7.5 Urine Specific [place] > 1.045 1.000-1.030 Urine Protein TRACE NEG Urine Glucose (UA) 3+ NEG Urine Ketones 2+ NEG Urine Occult Blood 1+ NEG Urine Nitrite NEG NEG Urine Bilirubin NEG NEG Urine Urobilinogen NEG NEG Urine Leukocyte Esterase SMALL NEG Urine WBC (Auto) >30 0-5 /hpf Urine RBC (Auto) 0-4 0-4 /hpf Urine Hyaline Casts (Auto) 1-5 0-5 /lpf Urine Epithelial Cells (Auto) 0-5 0-5 /lpf Urine Bacteria (Auto) NEG NEG Test 02/21/17 08:05 02/21/17 11:25 Range/Units Bedside Glucose 311 332 70-90 mg/dl Microbiology Results 02/21/17 Blood Culture, Received Pending 02/21/17 Blood Culture, Received Pending 02/21/17 Urine Culture, Received Pending Diagnostic Radiology CXR: IMPRESSION: Left basilar subsegmental atelectasis. CT Abd/Pelvis: IMPRESSION: 1. No evidence of bowel obstruction. No evidence of free air 2. Postsurgical changes with a left lower quadrant ostomy 3. Soft tissue structure containing cystic foci within the right adnexal region, possibly ovarian. This measures 5.8 cm in maximal diameter. There are adjacent adherent bowel loops. Further evaluation of this abnormality is recommended, as an ovarian neoplastic process cannot be excluded. 4. Bilateral renal hypodense lesions. These slightly exceed water attenuation and are therefore indeterminate EKG Sinus tachycardia ST & T wave abnormality, consider anterior ischemia Impression Assessment and Plan Patient is a 62yo Female with a PMH of Multiple Sclerosis, HTN, h/o diverticulitis and perforation s/p ostomy, h/o UTIs 2/2 neurogenic bladder who presents with nausea and vomiting that started yesterday. New Onset DM II; uncontrolled: -Patient's last Hgb a1c was 6.1 in 12/22 -BG in the 400s on admission. + Serum and urinary ketones -Hgb a1c was found to be 12.2 today -Serum osm: slightly elevated at 303 -No anion gap at admission -BG checks Q4H -Continue IV fluids -Glycemic control recs: -Lantus 15U BID -SSI with CF of 20 and CHO ratio of 1:9 -Will need to be discharged on insulin -Diabetic education consult placed UTI, uncomplicated: -H/o recurrent UTIs in the setting of incontinence and neurogenic bladder -Previous urine cultures have grown E. coli -Started on Rocephin in ED and will continue as in-patient -Urine and blood cultures pending Chest tightness: -Patient with vague chest discomfort -CXR unremarkable -ECG with sinus tachycardia and ST and T wave abnormality -Order repeat ECG -Initial troponin: negative. Trend cardiac enzymes Multiple Sclerosis: -Diagnosed with relapsing, remitting MS in late 2014 -Follows with Dr. Riddle as an out-patient -Has chronic complications including decreased visual acuity, significant motor impairment (wheel chair bound, limited use of arms), incontinence 2/2 neurogenic bladder, A&Ox2 at baseline -Consider neuro consult if declines from baseline -Will continue home medications R Posterior Thigh/buttocks Pressure Ulcer: -Patient is wheel chair bound and dependent on help for transfers & toileting -Multiple pressure ulcers on her buttocks -Is also incontinent and wears depends, worsening skin breakdown -Wound care consult placed HTN: -Normotensive on admission -Continue home meds Incidental finding of Ovarian Mass: -Ct abd pelvis showing: "Soft tissue structure containing cystic foci within the right adnexal region , possibly ovarian. This measures 5.8 cm in maximal diameter. Further evaluation of this abnormality is recommended, as an ovarian neoplastic process cannot be excluded". -Consult with obgyn placed for further evaluation of imaging -Discussed need for out-patient follow-up with patient DVT Ppx: Lovenox Code status: DNR, as discussed with patient and her Dispo: Plan to return home once medically stable with home health (pre- established) Level of Care Telemetry Advanced Directives Existing Living Will: No Existing Power of Lawn Sprinkler Installer: No Resuscitation Status DO NOT RESUSCITATE VTE Prophylaxis VTE Risk Assessment Done? Y/N: Yes Risk Level: Moderate Given or contraindicated: Enoxaparin (Lovenox) Social Service Consult Receiving Home Health
[2017-02-21] MEDS ORDERED: PHARMACY GLYCEMIC MGMT CONSULT PRN (13:28)
--- NOTE | 2017-02-21 14:06 | History and Physical ---
History & Physical Date of Service Feb 21, 2017. History & Physical This is a 62 year old female with a PMH of MS with complications including significant motor weakness, neurogenic bladder and urinary incontinence, near blindness, hx. of diverticulitis and perforation s/p ostomy, presented due to nausea/vomiting VITALS: Last Vital Signs Documentation Date Time Temp Pulse Resp B/P (MAP) Pulse Ox O2 Delivery O2 Flow Rate FiO2 02/21/17 12:00 Room Air 02/21/17 10:40 37.5 111 18 154/82 (106) 92 GEN: +moderate distress secondary to nausea/pain HEENT: +chronically impaired vision, no trauma CVS: +sinus tachycardia LUNGS: CTA b/l, no wheezing ABD: soft, incisional scar; +ostomy on LLQ EXT: no edema SKIN: +skin breakdown with weeping/bleeding pus on the R lower buttocks/ posterior thigh NEURO: +chronic motor weakness diffusely New Onset, Uncontrolled DM2 patient's last Ha1c was 6.1% Ha1c from today is 12.2% BSGs > 400 on admission with serum and urinary ketones No anion gap elevation; serum Osm ~ 300 was given 10 units of regular insulin in the ER; BSGs came down to around 300 will recheck PRP, Mg, Phos, serum ketones Lantus 10 units BID and insulin sliding scale diabetic diet; clear liquid diet glycemic control consult diabetic education consult Zofran PRN for nausea UTI patient with significant incontinence due to her MS previous urine cultures have grown E. coli pansensitive will start Rocephin and check cultures Pressure Ulcer, R Buttocks/Posterior Thigh patient has difficulty with movement, motor weakness due to MS as per patient's , she is mostly bed bound, with occasional transfers to wheelchair she has multiple pressure ulcers on her buttocks she has urinary incontinence and is refusing a Tillman catheter, making the wound worse wound care nurse consulted for further management help MS continue current medications for MS if weakness worsens, may need neuro consult DVT ppx Lovenox DNR
[2017-02-21] MEDS ORDERED: INSULIN GLARGINE SOLOSTAR 100 UNITS/ML 3 ML PEN SC ONE ×3 (14:16→17:00)
--- NOTE | 2017-02-21 14:26 | Pharmacy Progress Note ---
Glycemic Control Intl Consult Date of Service Feb 21, 2017. Scope Glycemic Pharmacist consulted by Dr Frost on 02/21/17 for glycemic control and to write orders per [facility] inpatient glycemic control protocol Objective Weight (Kilograms): 87.000 Accuchecks BSG (last 24hrs): Test 02/21/17 05:25 02/21/17 08:05 02/21/17 11:25 02/21/17 14:11 Random Glucose 417 mg/dl (70-99) Bedside Glucose 311 mg/dl (70-90) 332 mg/dl (70-90) Laboratory Data (last 24hrs) Test 02/21/17 05:25 02/21/17 05:35 02/21/17 14:11 Anion Gap 10.0 mmol/L 19.0 mmol/L - done on iStat machine BUN/Creatinine Ratio 19.9 Blood Urea Nitrogen 14 mg/dl Creatinine 0.70 mg/dl Hemoglobin A1c 12.2 % Potassium Level 4.2 mmol/L Sodium Level 135 mmol/L White Blood Count 10.05 K/uL Red Blood Count 4.24 M/uL Hemoglobin 14.2 g/dL Hematocrit 39.4 % Mean Corpuscular Volume 92.9 fL Mean Corpuscular Hemoglobin 33.5 pg Mean Corpuscular Hemoglobin Concent 36.0 g/dl Platelet Count 224 K/uL Mean Platelet Volume 9.9 fL Neutrophils (%) (Auto) 90.7 % Lymphocytes (%) (Auto) 5.2 % Monocytes (%) (Auto) 2.6 % Eosinophils (%) (Auto) 0.1 % Basophils (%) (Auto) 0.2 % Neutrophils # (Auto) 9.12 K/uL Lymphocytes # (Auto) 0.52 K/uL Monocytes # (Auto) 0.26 K/uL Eosinophils # (Auto) 0.01 K/uL Basophils # (Auto) 0.02 K/uL HbA1c Test 02/21/17 05:25 Hemoglobin A1c 12.2 % (4.5-5.6) H Recent Pertinent Medications Outpatient Anti-diabetic Regimen: * n/a The patient has received: * 10 units of IV Regular insulin in the ER Risk Factors for Insulin Resistance: * Infection: UTI - on Rocephin * Diet: type 2 diabetes Assessment & Plan ASSESSMENT: * 62 y/o female admitted with hyperglycemia (not in HHS or DKA) and new diagnosis of type 2 diabetes * She received a bolus of IV insulin in the ER as well as some fluids and her BSG has dropped ~100 points * In an insulin naive patient, will plan to start basal/bolus insulin based upon patient's weight and a stress level of 2. Current CF is a little tighter than this but goal range is higher so will keep as is. * Will also add some overnight accuchecks to provide additional coverage if necessary * With her A1c, she will definitely need insulin on discharge. Will wait until consumer educator sees patient prior to making recommendations for discharge. PLAN FOR INPATIENT GLYCEMIC CONTROL: * Basal insulin with LANTUS 15 units SQ BID - start now * Give 10 units tonight if BSG less than 140 mg/dL * Correctional Insulin with NOVOLOG per scale ACHS or Q6hrs while NPO + 00,04 accuchecks * Goal Range: Low 120 mg/dL - High 160 mg/dL * Correction Factor: 20 mg/dL/unit * Nutritional / Prandial insulin per carb ratio of 1 unit per 9 grams CHO consumed * Please note that the plan above was derived based on current level of insulin resistance and hospital stress. These recommendations are appropriate for inpatient admission only. Plan of care upon discharge will need to be reassessed to avoid potential outpatient hypo/hyperglycemia. Thank you.
[2017-02-21 15:12] LABS: BLOOD UREA NITROGEN 12 mg/dl (7-18); BUN/CREATININE RATIO 19.4 (10-20); CALCIUM 8.9 mg/dl (8.5-10.1); CARBON DIOXIDE 24 mmol/L (21-32); CHLORIDE 104 mmol/L (98-107); CKMB/CK RATIO 0.2 (0-3.0); CREATININE 0.62 mg/dl (0.60-1.20); GLUCOSE 319 mg/dl (70-99); MAGNESIUM 1.9 mg/dl (1.8-2.4); PHOSPHORUS 2.5 mg/dl (2.5-4.9); POTASSIUM 3.8 mmol/L (3.5-5.1); SODIUM 134 mmol/L (136-145)
[2017-02-21 15:24] LABS: BETA-HYDROXYBUTYRATE 15.95 mg/dL (0.2-2.81)
[2017-02-21 15:34] VITALS: BP 151/80; PULSE 93; TEMP 37.1; O2SAT 95
[2017-02-21 20:46] LABS: CKMB/CK RATIO 0.2 (0-3.0)
[2017-02-21 20:55] VITALS: BP 153/72; PULSE 89; TEMP 37; O2SAT 95
[2017-02-21] MEDS ORDERED: INSULIN GLARGINE SOLOSTAR 100 UNITS/ML 3 ML PEN SC SCH (21:00)
[2017-02-21 21:17] VITALS: BP 176/78; PULSE 88
[2017-02-21] MEDS: LISINOPRIL 10 MG TAB PO SCH (21:18)
[2017-02-21] MEDS: DOCUSATE SODIUM 100 MG CAP PO SCH (21:19)
[2017-02-21] MEDS: SERTRALINE HCL 100 MG TAB PO SCH (21:19)
[2017-02-21] MEDS: SERTRALINE HCL 50 MG TAB PO SCH (21:20)
--- NOTE | 2017-02-21 23:30 | CONSULTATION REPORT ---
DATE OF CONSULTATION: 02/21/2017 REASON FOR CONSULT: Pelvic mass. HISTORY OF PRESENT ILLNESS: The patient is a 62-year-old white female, para 1-0-0-1, postmenopausal, who presents today from the ER after being admitted with a history of nausea and vomiting that was resolved today. The patient was experiencing some vague abdominal pain as well, that has been going on according to her for approximately 2 months. The patient received Zofran on her way to the ER by EMS. Her present state is limited due to severe immobility, she is mostly confined to bed. PAST MEDICAL HISTORY: Significant for C. diff in the past, fibromyalgia, thoracic outlet syndrome, history of DVT, history of pulmonary embolism, irritable bowel syndrome, severe multiple sclerosis, neurogenic bladder, perforated sigmoid due to diverticulitis with a colostomy in place and chronic stress incontinence. PAST SURGICAL HISTORY: Includes a colostomy and prior colectomy, previous history of tubal ligation, previous appendectomy and previous IVC filter. FAMILY HISTORY: Noncontributory. SOCIAL HISTORY: Past smoker. Denies alcohol or drug use. CURRENT MEDICATIONS: Include Norvasc 5 mg p.o. daily, baclofen 20 mg p.o. 4 times a day, Colace 100 mg p.o. b.i.d., glatiramer acetate 40 mg subQ 3 times per week, lisinopril 10 mg p.o. at bedtime, omeprazole 20 mg p.o. daily, polyethylene glycol 3350, MiraLax 17 g p.o. daily, sertraline 25 mg p.o. at bedtime, Zoloft 100 mg p.o. at bedtime and Zanaflex 4 mg p.o. t.i.d. ALLERGIES: INCLUDE CHLORDIAZEPOXIDE, LEVOFLOXACIN, MORPHINE, SULFA ANTIBIOTICS AND TRAMADOL. PHYSICAL EXAMINATION: GENERAL: The patient is currently in bed. She is relatively immobile in mild discomfort. ABDOMEN: Obese. It is soft, it is nontender. There is no rebound or guarding. Ostomy is in the left lower quadrant. There are no peritoneal signs noted. GENITOURINARY: Pelvic exam was done, the vagina and vulva are atrophic. There is skin breakdown near the labia minora. Bimanual exam was performed, revealing no evidence of any mass in the vagina or palpable mass. CT scan which was done today showed soft tissue multicystic right adnexal mass, which is 5.8 cm in maximum diameter, this could be adherent to bowel. No ascites is noted. ASSESSMENT: Possible ovarian mass. PLAN: We will obtain CA-125, possible further workup may include MRI or repeat CT with contrast. The patient currently has no evidence of bowel obstruction or any surgical abdomen. In view of this, I do not feel surgical intervention is appropriate at this time. We will follow as needed.
[2017-02-22] VITALS (7 sets, daily range): BP systolic 94–134; BP diastolic 57–74; PULSE 61–77; TEMP 36.7–37.1; O2SAT 95–97
[2017-02-22] MEDS: SODIUM CHLORIDE 0.9% 1000ML 1,000 ML IV SCH ×2 (01:56→05:46)
[2017-02-22 02:23] LABS: CKMB/CK RATIO 0.3 (0-3.0)
[2017-02-22] MEDS: INSULIN ASPART 100 UNITS/ML 3 ML PEN SC SCH ×6 (04:00→21:00)
[2017-02-22 06:40] LABS: HEMATOCRIT 32.8 % (37-47); MEAN CELL VOLUME 92.7 fL (80-100); MEAN CORPUSCULAR HEMOGLOBIN 32.5 pg (25-34); MEAN CORPUSCULAR HGB CONC 35.1 g/dl (32-36); MEAN PLATELET VOLUME 9.1 fL (7.4-10.4); PLATELET COUNT 168 K/uL (130-400); RED BLOOD COUNT 3.54 M/uL (4.2-5.4); WHITE BLOOD COUNT 6.67 K/uL (4.8-10.8)
[2017-02-22 07:30] LABS: CALCIUM 7.6 mg/dl (8.5-10.1); CREATININE 0.5 mg/dl (0.60-1.20)
[2017-02-22] MEDS: CEFTRIAXONE SOD INJ 1 GM in DEXTROSE 5% ADD-VANTAGE 50ML 50 ML IV SCH (08:01)
[2017-02-22] MEDS: AMLODIPINE BESYLATE 5 MG TAB PO SCH (08:02)
[2017-02-22] MEDS: BACLOFEN 10 MG TAB PO SCH ×4 (08:02→21:20)
[2017-02-22] MEDS: POLYETHYLENE (MIRALAX) 17 GM PACK PO SCH (08:03)
[2017-02-22] MEDS: DOCUSATE SODIUM 100 MG CAP PO SCH ×2 (08:03→21:19)
[2017-02-22] MEDS: PANTOprazole SOD 40 MG TAB PO SCH (08:04)
[2017-02-22] MEDS ORDERED: INSULIN GLARGINE SOLOSTAR 100 UNITS/ML 3 ML PEN SC SCH ×2 (09:00→21:00)
[2017-02-22] MEDS: SODIUM CHLOR 0.45% + 20MEQ KCL 1,000 ML IV SCH ×2 (09:23→15:46)
[2017-02-22] MEDS: POTASSIUM CHLR 10 MEQ / WTR 10 MEQ in PREMIXED WATER 100 ML IV SCH ×4 (09:23→14:18)
--- NOTE | 2017-02-22 09:43 | Pharmacy Progress Note ---
Glycemic Control Progress Note Date of Service Feb 22, 2017. Scope Glycemic Pharmacist consulted for glycemic control to write orders per [facility] inpatient glycemic control protocol. Objective Accuchecks BSG (last 24hrs): Test 02/21/17 11:25 02/21/17 14:11 02/21/17 16:34 02/21/17 20:44 Bedside Glucose 332 mg/dl (70-90) 376 mg/dl (70-90) 218 mg/dl (70-90) Random Glucose 319 mg/dl (70-99) Test 02/21/17 23:59 02/22/17 03:58 02/22/17 06:23 02/22/17 07:25 Bedside Glucose 141 mg/dl (70-90) 142 mg/dl (70-90) 114 mg/dl (70-90) Random Glucose 126 mg/dl (70-99) HbA1c: Test 02/21/17 05:25 Hemoglobin A1c 12.2 % (4.5-5.6) H Recent Pertinent Medications Outpatient Anti-diabetic Regimen: * n/a The patient is currently receiving: * Lantus 37 units total yesterday * Novolog ACHS + 00,04 * Goal 120-160 * CF 20 * CR 6 Risk Factors for Insulin Resistance: * Infection: UTI - on Rocephin * Diet: type 2 diabetes Assessment & Plan ASSESSMENT: 02/21/17 * 62 y/o female admitted with hyperglycemia (not in HHS or DKA) and new diagnosis of type 2 diabetes * She received a bolus of IV insulin in the ER as well as some fluids and her BSG has dropped ~100 points * In an insulin naive patient, will plan to start basal/bolus insulin based upon patient's weight and a stress level of 2. Current CF is a little tighter than this but goal range is higher so will keep as is. * Will also add some overnight accuchecks to provide additional coverage if necessary * With her A1c, she will definitely need insulin on discharge. Will wait until rn diabetes educator sees patient prior to making recommendations for discharge. 02/22/17 * BSGs have improved significantly over the past 24 hours, from increased insulin doses and an increase in IV fluids * Will adjust insulin regimen based on est TDD of ~70 units * CDE was unable to see patient yesterday so will attempt later today or tomorrow to provide some insight into plans for discharge. Will f/u with this tomorrow. PLAN FOR INPATIENT GLYCEMIC CONTROL: * Change Lantus to 17 units BID * Correctional Insulin with NOVOLOG per scale ACHS or Q6hrs while NPO * Goal Range: Low 120 mg/dL - High 160 mg/dL * Correction Factor: 20 mg/dL/unit * Carb ratio: LOOSEN to 1 unit per 8 grams CHO consumed * Please note that the plan above was derived based on current level of insulin resistance and hospital stress. These recommendations are appropriate for inpatient admission only. Plan of care upon discharge will need to be reassessed to avoid potential outpatient hypo/hyperglycemia. Thank you.
[2017-02-22] MEDS: ENOXAPARIN 40 MG/0.4 ML SYR SC SCH (12:15)
--- NOTE | 2017-02-22 15:03 | Progress Note ---
Medicine Progress Note Date & Time of Visit: Feb 22, 2017 at 15:00. (Rosio Romero ., P.A.-C.) Subjective Patient was seen and examined. Still feeling nauseous but no vomiting. On clear liquid diet. Denies any lightheadedness, confusion, CP, SOB, worsening weakness. Educated on new onset diabetes. (Rosio Romero, P.A.-C.) Objective Last 8 Hrs Date Time Temp Pulse Resp B/P (MAP) Pulse Ox O2 Delivery O2 Flow Rate FiO2 02/22/17 12:00 Room Air 02/22/17 08:00 96 Room Air 02/22/17 07:40 37.1 77 18 134/72 (92) 96 Room Air Physical Exam: General Appearance: No apparent distress. Sitting upright in bed. Head: normocephalic, atraumatic Eyes: normal inspection (decreased visual acuity 2/2 MS) ENT: hearing grossly normal Neck: supple, trachea midline Respiratory/Chest: chest non-tender, lungs clear, normal breath sounds, no respiratory distress Cardiovascular: regular rate, rhythm, no murmur Abdomen/GI: normal bowel sounds (LLQ Ostomy noted without output), soft, no organomegaly, non-tender Back: normal inspection Extremities/Musculoskelatal: no calf tenderness, no pedal edema, + pertinent finding (Skin breakdown with serosanguinous discharge on the R posterior thigh/ buttocks ) Neurologic/Psych: alert ( Alert & oriented to person and place at baseline. ), + motor weakness (Chronic, 2/2 MS. Wheelchair bound, limited use of UE ), + depressed affect Skin: normal color, warm/dry Laboratory Results: Last 24 Hours Test 02/21/17 16:34 02/21/17 19:59 02/21/17 20:44 02/21/17 23:59 Bedside Glucose 376 mg/dl 218 mg/dl 141 mg/dl Total Creatine Kinase 454 U/L Creatine Kinase MB 1.1 ng/ml Creatine Kinase MB Ratio 0.2 Troponin I < 0.015 ng/ml Test 02/22/17 01:26 02/22/17 03:58 02/22/17 06:23 02/22/17 07:25 Total Creatine Kinase 351 U/L Creatine Kinase MB 1.1 ng/ml Creatine Kinase MB Ratio 0.3 Troponin I < 0.015 ng/ml Bedside Glucose 142 mg/dl 114 mg/dl White Blood Count 6.67 K/uL Red Blood Count 3.54 M/uL Hemoglobin 11.5 g/dL Hematocrit 32.8 % Mean Corpuscular Volume 92.7 fL Mean Corpuscular Hemoglobin 32.5 pg Mean Corpuscular Hemoglobin Concent 35.1 g/dl RDW Standard Deviation 49.7 fL RDW Coefficient of Variation 14.6 % Platelet Count 168 K/uL Mean Platelet Volume 9.1 fL Sodium Level 140 mmol/L Potassium Level 3.0 mmol/L Chloride Level 110 mmol/L Carbon Dioxide Level 24 mmol/L Anion Gap 6.0 mmol/L Blood Urea Nitrogen 8 mg/dl Creatinine 0.50 mg/dl Est Creatinine Clear Calc Drug Dose 122.7 ml/min Estimated GFR () 118.5 Estimated GFR (Non- 102.3 BUN/Creatinine Ratio 16.0 Random Glucose 126 mg/dl Calcium Level 7.6 mg/dl Test 02/22/17 11:42 Bedside Glucose 144 mg/dl (Rosio Romero, P.A.-C.) Assessment & Plan Patient is a 62yo Female with a PMH of Multiple Sclerosis, HTN, h/o diverticulitis and perforation s/p ostomy, h/o UTIs 2/2 neurogenic bladder who presents with nausea and vomiting that started yesterday. New Onset DM II; uncontrolled: improving -Patient's last Hgb a1c was 6.1 in 12/22 -BG in the 400s on admission. + Serum and urinary ketones -Hgb a1c was found to be 12.2 this admission -Serum osm: slightly elevated at 303 -BG checks Q4H -Continue IV fluids -BG improved to 110-140s today -Glycemic control recs: -Lantus 17U BID -SSI with CF of 20 and CHO ratio of 1:8 -Will need to be discharged on insulin -Diabetic education consult to be done once returns due to patient being unable to perform self-care UTI, uncomplicated: -H/o recurrent UTIs in the setting of incontinence and neurogenic bladder -Previous urine cultures have grown E. coli -Started on Rocephin in ED and will continue as in-patient -Urine and blood cultures pending Multiple Sclerosis: -Diagnosed with relapsing, remitting MS in late 2014 -Follows with Dr. Shaefer as an out-patient -Has chronic complications including decreased visual acuity, significant motor impairment (wheel chair bound, limited use of arms), incontinence 2/2 neurogenic bladder, A&Ox2 at baseline -Consider neuro consult if declines from baseline -PT/OT evals ordered -Will continue home medications R Posterior Thigh/buttocks Pressure Ulcer: -Patient is wheel chair bound and dependent on help for transfers & toileting -Is incontinent and refused catheter; worsening skin breakdown -Wound care consult placed Hypokalemia: -K low at 3.0 today -2/2 insulin administration driving serum K into cells -Replaced; monitoring HTN: -Normotensive on admission -Continue home meds Incidental finding of Ovarian Mass: -Ct abd pelvis showing: "Soft tissue structure containing cystic foci within the right adnexal region , possibly ovarian. This measures 5.8 cm in maximal diameter. Further evaluation of this abnormality is recommended, as an ovarian neoplastic process cannot be excluded". Per obgyn consult: -CA-125 ordered -Possible further work-up includes MRI or repeat CT with contrast -Surgical intervention is not appropriate at this time -Discussed need for out-patient follow-up with patient Chest tightness: resolving -Patient with vague chest discomfort -CXR unremarkable -Repeat ECG with NSR -Troponin negative x 3 DVT Ppx: Lovenox Code status: DNR, as discussed with patient and her Dispo: Plan to return home once medically stable with home health (pre- established) Current Inpatient Medications: Current Inpatient Medications Medications (Trade) Dose Ordered Sig/Mo Route Start Time Stop Time Status Last Admin Dose Admin Ioversol (Optiray 320) 100 ml UD PRN IV 02/21/17 05:30 02/25/17 05:29 Enoxaparin Sodium (Lovenox Inj) 40 mg Q24H SC 02/21/17 11:30 03/23/17 11:29 02/22/17 12:15 40 MG Acetaminophen (Tylenol Tab) 650 mg Q4H PRN PO 02/21/17 08:45 03/23/17 08:44 Ondansetron HCl (Zofran Inj) 4 mg Q6H PRN IV 02/21/17 08:45 03/23/17 08:44 02/21/17 21:48 4 MG Insulin Aspart (novoLOG ASPART) SLIDING SCALE If C... ACHS SC 02/21/17 11:00 03/23/17 10:59 02/22/17 12:19 3 UNITS Glucose (Glucose 40% Gel) 15-30 GRAMS 15 GRAMS... UD PRN PO 02/21/17 09:00 03/23/17 08:59 Glucose (Glucose Chew Tab) 4-8 Tablets 4 Tabl... UD PRN PO 02/21/17 09:00 03/23/17 08:59 Dextrose (Dextrose 50% 50ML Syringe) 25-50ML OF 50% DW IV FOR... UD PRN IV 02/21/17 09:00 03/23/17 08:59 Glucagon (Glucagon Inj) 1 mg UD PRN SQ 02/21/17 09:00 03/23/17 08:59 Amlodipine Besylate (Norvasc Tab) 5 mg DAILY PO 02/21/17 12:00 03/23/17 11:59 02/22/17 08:02 5 MG Baclofen (Lioresal Tab) 20 mg QID PO 02/21/17 13:00 03/23/17 12:59 02/22/17 12:19 20 MG Docusate Sodium (coLACE CAP) 100 mg BID PO 02/21/17 21:00 03/23/17 20:59 02/22/17 08:03 100 MG Lisinopril (Zestril Tab) 10 mg HS PO 02/21/17 21:00 03/23/17 20:59 02/21/17 21:18 10 MG Sertraline HCl (Zoloft Tab) 25 mg HS PO 02/21/17 21:00 03/23/17 20:59 02/21/17 21:20 25 MG Sertraline HCl (Zoloft Tab) 100 mg HS PO 02/21/17 21:00 03/23/17 20:59 02/21/17 21:19 100 MG Miscellaneous Information (Order Awaiting Action) 1 ea QS N/A 02/21/17 16:00 03/23/17 15:59 Pantoprazole Sodium (Protonix Tab) 40 mg DAILY PO 02/21/17 12:00 03/23/17 11:59 02/22/17 08:04 40 MG Polyethylene (Miralax Powder Packet) 17 gm DAILY PO 02/21/17 12:00 03/23/17 11:59 Tizanidine HCl (Zanaflex Tab) 4 mg TID PO 02/21/17 14:00 03/23/17 13:59 02/22/17 14:18 4 MG Ceftriaxone Sodium 1 gm/ Dextrose 50 ml @ 100 mls/hr Q24H IV 02/22/17 08:00 02/27/17 07:59 02/22/17 08:01 100 MLS/HR Miscellaneous Information (Consult Glycemic Management Pharmacy) 1 ea UD PRN N/A 02/21/17 13:28 03/23/17 13:27 Potassium Chloride/Sodium Chloride 1,000 ml @ 125 mls/hr Q8H IV 02/22/17 08:00 03/24/17 07:59 02/22/17 09:23 125 MLS/HR Insulin Glargine (Lantus Solostar Pen) 17 units BID SC 02/22/17 21:00 03/24/17 20:59 (Rosio Romero, P.A.-C.) Saw/examined the patient in room 288 Patient is doing okay; no problems/issues to note nausea improved and tolerated lunch Plan to discharge on insulin - diabetic education and glycemic control consult appreciated continue Rocephin, cultures pending replace potassium appreciate OB-fashion buyer consult - CA-125 pending; further imaging studies as per OB/ fashion buyer inpatient vs. outpatient (Zuleyma Frost, )
[2017-02-22] MEDS: SERTRALINE HCL 50 MG TAB PO SCH (21:20)
[2017-02-22] MEDS: SERTRALINE HCL 100 MG TAB PO SCH (21:20)
[2017-02-22] MEDS: LISINOPRIL 10 MG TAB PO SCH (21:20)
[2017-02-22] MEDS: ONDANSETRON INJ 2 MG/ML 2 ML VIAL IV PRN (21:29)
[2017-02-23] MEDS: SODIUM CHLOR 0.45% + 20MEQ KCL 1,000 ML IV SCH ×4 (00:35→23:49)
[2017-02-23 03:17] VITALS: BP 131/82; PULSE 65; TEMP 36.9; O2SAT 96
[2017-02-23 06:08] LABS: MEAN CELL VOLUME 92.2 fL (80-100); MEAN CORPUSCULAR HEMOGLOBIN 32.4 pg (25-34); MEAN CORPUSCULAR HGB CONC 35.2 g/dl (32-36); MEAN PLATELET VOLUME 9.4 fL (7.4-10.4); PLATELET COUNT 188 K/uL (130-400); RED BLOOD COUNT 3.58 M/uL (4.2-5.4); WHITE BLOOD COUNT 7.88 K/uL (4.8-10.8)
[2017-02-23 06:35] LABS: CREATININE 0.43 mg/dl (0.60-1.20)
[2017-02-23 06:36] LABS: BUN/CREATININE RATIO 14.2 (10-20); CALCIUM 7.8 mg/dl (8.5-10.1); POTASSIUM 3.8 mmol/L (3.5-5.1)
[2017-02-23 07:10] VITALS: BP 150/84; PULSE 74; TEMP 36.9; O2SAT 96
[2017-02-23] MEDS: DOCUSATE SODIUM 100 MG CAP PO SCH ×2 (07:38→22:05)
[2017-02-23] MEDS: AMLODIPINE BESYLATE 5 MG TAB PO SCH (07:38)
[2017-02-23] MEDS: CEFTRIAXONE SOD INJ 1 GM in DEXTROSE 5% ADD-VANTAGE 50ML 50 ML IV SCH (07:38)
[2017-02-23] MEDS: PANTOprazole SOD 40 MG TAB PO SCH (07:38)
[2017-02-23] MEDS: BACLOFEN 10 MG TAB PO SCH ×4 (07:39→22:05)
[2017-02-23] MEDS: POLYETHYLENE (MIRALAX) 17 GM PACK PO SCH (07:39)
[2017-02-23] MEDS: INSULIN GLARGINE SOLOSTAR 100 UNITS/ML 3 ML PEN SC SCH ×2 (08:23→22:12)
[2017-02-23] MEDS: INSULIN ASPART 100 UNITS/ML 3 ML PEN SC SCH ×4 (08:23→21:00)
--- NOTE | 2017-02-23 08:44 | Pharmacy Progress Note ---
Glycemic Control Progress Note Date of Service Feb 23, 2017. Scope Glycemic Pharmacist consulted for glycemic control to write orders per [facility] inpatient glycemic control protocol. Objective Accuchecks BSG (last 24hrs): Test 02/22/17 11:42 02/22/17 16:43 02/22/17 20:38 02/23/17 05:29 Bedside Glucose 144 mg/dl (70-90) 145 mg/dl (70-90) 133 mg/dl (70-90) Random Glucose 92 mg/dl (70-99) Test 02/23/17 07:37 Bedside Glucose 99 mg/dl (70-90) HbA1c: Test 02/21/17 05:25 Hemoglobin A1c 12.2 % (4.5-5.6) H Recent Pertinent Medications The patient is currently receiving: * Basal insulin: Lantus 17 units every 12 hours * Correctional Insulin: Novolog Correction per scale ACHS Goal Range: Low 120 mg/dL - High 160 mg/dL Correction Factor: 20 mg/dL/unit * Prandial insulin: Per carb ratio of 1 unit per 8 grams CHO consumed Outpatient Anti-Diabetic Meds Newly diagnosed diabetic Assessment & Plan ASSESSMENT: * See progress note from 02/21/17 for more background info, in short: Ms Arceo is a 62 y/o F admitted with new onset diabetes. * Pt receiving SQ basal bolus insulin regimen for hyperglycemia secondary to baseline DM (newly diagnosed), infection (UTI currently on Rocephin) * Patient is currently receiving an average of 40 units of insulin per day * 32 units of basal insulin * 7 units of prandial/correctional insulin * BSGs ranging 114 - 133 mg/dl over the past 24hrs * Changes needed to insulin regimen: * AM Fasting BSG = 92 mg/dl. This is in slightly below goal range for patient based on inpatient targets and co-morbidities. Therefore Basal insulin will be reduced back to 15 units twice daily. * Post-prandial BSGs are in range therefore no changes needed to CF/CR. Carbohydrate ratio appears appropriate as few carbs consumed yesterday were covered appropriately. * Total daily dose = 40 units. This dosing is yielding adequate glycemic control- patient is not currently eating much so it appears that the patient's true basal rate is between 30 and 40 units. PLAN FOR INPATIENT GLYCEMIC CONTROL: * DECREASING Lantus to 15 units SQ BID * Continuing correction factor of 20 mg/dl/unit * Continuing carb ratio of 1 unit per 8 grams CHO consumed * Continuing goal range of Low 120 mg/dL - High 160 mg/dL RECOMMENDATIONS FOR DISCHARGE: * Appears that patient's basal rate is between 30-40 units daily. Reasonable to start Lantus 15 units twice daily (or 30 units once daily) as an outpatient. May use small doses (3-4 units) of Novolog with meals based upon what she is receiving here. Thank you.
[2017-02-23] MEDS: ENOXAPARIN 40 MG/0.4 ML SYR SC SCH (11:12)
[2017-02-23 11:27] VITALS: BP 110/60; PULSE 62; TEMP 36.6; O2SAT 96
--- NOTE | 2017-02-23 15:36 | Progress Note ---
Medicine Progress Note Date & Time of Visit: Feb 23, 2017 at 15:28. (Rosio Romero, P.A.-C.) Subjective Patient seen and examined. Doing well today; nausea has decreased. Still has diffuse abdominal tenderness. Denies lightheadedness, CP, SOB, vomiting, dysuria or increased weakness. (Rosio Romero, P.A.-C.) Objective Last 8 Hrs Date Time Temp Pulse Resp B/P (MAP) Pulse Ox O2 Delivery O2 Flow Rate FiO2 02/23/17 12:15 Room Air 02/23/17 11:27 36.6 62 18 110/60 (77) 96 Room Air 02/23/17 08:15 Room Air Physical Exam: General Appearance: No apparent distress. Sitting upright in bed. Head: normocephalic, atraumatic Eyes: normal inspection (decreased visual acuity 2/2 MS) ENT: hearing grossly normal Neck: supple, trachea midline Respiratory/Chest: chest non-tender, lungs clear, normal breath sounds, no respiratory distress Cardiovascular: regular rate, rhythm, no murmur Abdomen/GI: normal bowel sounds (LLQ Ostomy noted without output), soft, no organomegaly, non-tender Back: normal inspection Extremities/Musculoskelatal: no calf tenderness, no pedal edema, wound on R posterior thigh/buttocks bandaged. Clean/dry. Neurologic/Psych: alert ( Alert & oriented to person and place at baseline. ), + motor weakness (Chronic, 2/2 MS. Wheelchair bound, limited use of UE ), + depressed affect Skin: normal color, warm/dry Laboratory Results: Last 24 Hours Test 02/22/17 16:43 02/22/17 20:38 02/23/17 05:29 02/23/17 07:37 Bedside Glucose 145 mg/dl 133 mg/dl 99 mg/dl White Blood Count 7.88 K/uL Red Blood Count 3.58 M/uL Hemoglobin 11.6 g/dL Hematocrit 33.0 % Mean Corpuscular Volume 92.2 fL Mean Corpuscular Hemoglobin 32.4 pg Mean Corpuscular Hemoglobin Concent 35.2 g/dl RDW Standard Deviation 51.1 fL RDW Coefficient of Variation 15.0 % Platelet Count 188 K/uL Mean Platelet Volume 9.4 fL Sodium Level 141 mmol/L Potassium Level 3.8 mmol/L Chloride Level 113 mmol/L Carbon Dioxide Level 23 mmol/L Anion Gap 5.0 mmol/L Blood Urea Nitrogen 6 mg/dl Creatinine 0.43 mg/dl Est Creatinine Clear Calc Drug Dose 143.6 ml/min Estimated GFR () 124.6 Estimated GFR (Non- 107.5 BUN/Creatinine Ratio 14.2 Random Glucose 92 mg/dl Calcium Level 7.8 mg/dl Test 02/23/17 11:44 Bedside Glucose 130 mg/dl (Rosio Romero, P.A.-C.) Assessment & Plan Patient is a 62yo Female with a PMH of Multiple Sclerosis, HTN, h/o diverticulitis and perforation s/p ostomy, h/o UTIs 2/2 neurogenic bladder who presents with nausea and vomiting that started yesterday. New Onset DM II; uncontrolled: improving -Patient's last Hgb a1c was 6.1 in 12/22 -BG in the 400s on admission. + Serum and urinary ketones -Hgb a1c was found to be 12.2 this admission -Serum osm: slightly elevated at 303 -BG checks Q4H -Continue IV fluids -BG improved to 100-140s today -Glycemic control recs: -Lantus 15U BID -SSI with CF of 20 and CHO ratio of 1:8 -Will need to be discharged on insulin -Diabetic education consult attempted but is looking for patient to be placed at [facility] due to increased requirement of care UTI, uncomplicated: -H/o recurrent UTIs in the setting of incontinence and neurogenic bladder -Previous urine cultures have grown E. coli -Started on Rocephin in ED and will continue as in-patient -Urine and blood cultures pending Multiple Sclerosis: -Diagnosed with relapsing, remitting MS in late 2014 -Follows with Dr. Riddle as an out-patient -Has chronic complications including decreased visual acuity, significant motor impairment (wheel chair bound, limited use of arms), incontinence 2/2 neurogenic bladder, A&Ox2 at baseline -Consider neuro consult if declines from baseline -PT/OT evals ordered -Will continue home medications R Posterior Thigh/buttocks Pressure Ulcer: -Patient is wheel chair bound and dependent on help for transfers & toileting -Is incontinent and refused catheter; worsening skin breakdown -Patient states that wound care came today; note pending Hypokalemia: -K low at 3.0 today -2/2 insulin administration driving serum K into cells -Replaced; monitoring HTN: -Normotensive on admission -Continue home meds Incidental finding of Ovarian Mass: -Ct abd pelvis showing: "Soft tissue structure containing cystic foci within the right adnexal region , possibly ovarian. This measures 5.8 cm in maximal diameter. Further evaluation of this abnormality is recommended, as an ovarian neoplastic process cannot be excluded". Per obgyn consult: -CA-125 ordered -Possible further work-up includes MRI or repeat CT with contrast -Surgical intervention is not appropriate at this time -Discussed need for out-patient follow-up with patient Chest tightness: resolved -Patient with vague chest discomfort -CXR unremarkable -Repeat ECG with NSR -Troponin negative x 3 DVT Ppx: Lovenox Code status: DNR, as discussed with patient and her Dispo: Per CM, is overwhelmed with patient's needs for care and is looking [facility] . PT/OT evals ordered and pending. Current Inpatient Medications: Current Inpatient Medications Medications (Trade) Dose Ordered Sig/Mo Route Start Time Stop Time Status Last Admin Dose Admin Ioversol (Optiray 320) 100 ml UD PRN IV 02/21/17 05:30 02/25/17 05:29 Enoxaparin Sodium (Lovenox Inj) 40 mg Q24H SC 02/21/17 11:30 03/23/17 11:29 02/23/17 11:12 40 MG Acetaminophen (Tylenol Tab) 650 mg Q4H PRN PO 02/21/17 08:45 03/23/17 08:44 Ondansetron HCl (Zofran Inj) 4 mg Q6H PRN IV 02/21/17 08:45 03/23/17 08:44 02/22/17 21:29 4 MG Insulin Aspart (novoLOG ASPART) SLIDING SCALE If C... ACHS SC 02/21/17 11:00 03/23/17 10:59 02/23/17 12:06 9 UNITS Glucose (Glucose 40% Gel) 15-30 GRAMS 15 GRAMS... UD PRN PO 02/21/17 09:00 03/23/17 08:59 Glucose (Glucose Chew Tab) 4-8 Tablets 4 Tabl... UD PRN PO 02/21/17 09:00 03/23/17 08:59 Dextrose (Dextrose 50% 50ML Syringe) 25-50ML OF 50% DW IV FOR... UD PRN IV 02/21/17 09:00 03/23/17 08:59 Glucagon (Glucagon Inj) 1 mg UD PRN SQ 02/21/17 09:00 03/23/17 08:59 Amlodipine Besylate (Norvasc Tab) 5 mg DAILY PO 02/21/17 12:00 03/23/17 11:59 02/23/17 07:38 5 MG Baclofen (Lioresal Tab) 20 mg QID PO 02/21/17 13:00 03/23/17 12:59 02/23/17 13:34 20 MG Docusate Sodium (coLACE CAP) 100 mg BID PO 02/21/17 21:00 03/23/17 20:59 02/23/17 07:38 100 MG Lisinopril (Zestril Tab) 10 mg HS PO 02/21/17 21:00 03/23/17 20:59 02/22/17 21:20 10 MG Sertraline HCl (Zoloft Tab) 25 mg HS PO 02/21/17 21:00 03/23/17 20:59 02/22/17 21:20 25 MG Sertraline HCl (Zoloft Tab) 100 mg HS PO 02/21/17 21:00 03/23/17 20:59 02/22/17 21:20 100 MG Miscellaneous Information (Order Awaiting Action) 1 ea QS N/A 02/21/17 16:00 03/23/17 15:59 Pantoprazole Sodium (Protonix Tab) 40 mg DAILY PO 02/21/17 12:00 03/23/17 11:59 02/23/17 07:38 40 MG Polyethylene (Miralax Powder Packet) 17 gm DAILY PO 02/21/17 12:00 03/23/17 11:59 Tizanidine HCl (Zanaflex Tab) 4 mg TID PO 02/21/17 14:00 03/23/17 13:59 02/23/17 13:34 4 MG Ceftriaxone Sodium 1 gm/ Dextrose 50 ml @ 100 mls/hr Q24H IV 02/22/17 08:00 02/27/17 07:59 02/23/17 07:38 100 MLS/HR Miscellaneous Information (Consult Glycemic Management Pharmacy) 1 ea UD PRN N/A 02/21/17 13:28 03/23/17 13:27 Potassium Chloride/Sodium Chloride 1,000 ml @ 125 mls/hr Q8H IV 02/22/17 08:00 03/24/17 07:59 02/23/17 10:08 125 MLS/HR Insulin Glargine (Lantus Solostar Pen) 15 units BID SC 02/23/17 09:00 03/25/17 08:59 02/23/17 08:23 15 UNITS (Rosio Romero, P.A.-C.) Saw/examined the patient in room 288 had a long-lengthy discussion with family, including who states that he is having trouble taking care of her at home states that he spends most of his day at work and when he is not working he is taking care of her discussed options including nursing facility patient is very tearful during this talk will need PT/OT and case management aware of this situation for now, continue current insulin regimen patient now agreeable to [facility], which we will place wound care as per nursing (Zuleyma Frost, DO)
[2017-02-23 15:49] VITALS: BP 114/71; PULSE 69; TEMP 36.7; O2SAT 98
[2017-02-23 20:02] VITALS: BP 162/76; PULSE 70; TEMP 36.9; O2SAT 98
[2017-02-23] MEDS: LISINOPRIL 10 MG TAB PO SCH (22:04)
[2017-02-23] MEDS: SERTRALINE HCL 50 MG TAB PO SCH (22:06)
[2017-02-23] MEDS: SERTRALINE HCL 100 MG TAB PO SCH (22:06)
[2017-02-24] VITALS (8 sets, daily range): BP systolic 95–158; BP diastolic 59–75; PULSE 63–84; TEMP 36.5–37; O2SAT 95–98
[2017-02-24] MEDS ORDERED: OXYCODONE/ACETAMINOPHEN 5-325 TAB PO PRN (03:00)
[2017-02-24] MEDS ORDERED: HYDROmorphone INJ 0.5 MG/0.5 ML SYR IV PRN (03:00)
[2017-02-24] MEDS ORDERED: LORAZEPAM 2 MG/ML 1 ML VIAL IV PRN (03:00)
[2017-02-24] MEDS: LORAZEPAM INJ 0.5 MG in SYRINGE 0.75 ML IV PRN ×2 (03:27→23:42)
[2017-02-24 06:20] LABS: HEMATOCRIT 37.6 % (37-47); MEAN CELL VOLUME 92.2 fL (80-100); MEAN CORPUSCULAR HEMOGLOBIN 32.8 pg (25-34); MEAN CORPUSCULAR HGB CONC 35.6 g/dl (32-36); MEAN PLATELET VOLUME 9.8 fL (7.4-10.4); PLATELET COUNT 206 K/uL (130-400); RED BLOOD COUNT 4.08 M/uL (4.2-5.4); WHITE BLOOD COUNT 7.37 K/uL (4.8-10.8)
[2017-02-24 06:54] LABS: BUN/CREATININE RATIO 7.3 (10-20); CALCIUM 8.1 mg/dl (8.5-10.1); CREATININE 0.44 mg/dl (0.60-1.20); POTASSIUM 3.8 mmol/L (3.5-5.1)
[2017-02-24] MEDS: CEFTRIAXONE SOD INJ 1 GM in DEXTROSE 5% ADD-VANTAGE 50ML 50 ML IV SCH (07:47)
[2017-02-24] MEDS: AMLODIPINE BESYLATE 5 MG TAB PO SCH (07:48)
[2017-02-24] MEDS: POLYETHYLENE (MIRALAX) 17 GM PACK PO SCH (07:48)
[2017-02-24] MEDS: SODIUM CHLOR 0.45% + 20MEQ KCL 1,000 ML IV SCH (07:48)
[2017-02-24] MEDS: DOCUSATE SODIUM 100 MG CAP PO SCH ×2 (07:48→21:25)
[2017-02-24] MEDS: BACLOFEN 10 MG TAB PO SCH ×4 (07:48→21:26)
[2017-02-24] MEDS: PANTOprazole SOD 40 MG TAB PO SCH (07:48)
[2017-02-24] MEDS: GLATIRAMER ACETATE 40 MG/ML SYR SQ SCH (07:49)
[2017-02-24] MEDS: INSULIN ASPART 100 UNITS/ML 3 ML PEN SC SCH ×4 (08:30→21:32)
--- NOTE | 2017-02-24 11:28 | Progress Note ---
Subjective Date of Service: Feb 24, 2017. Subjective Pt evaluation today including: conversation w/ patient, physical exam, lab review, review of studies, review of inpatient medication list Saw/examined the patient in room 288 Doing better today Does not verbalize any complaints, more tired this morning Good PO intake Problem List Medical Problems: (1) Abdominal pain Status: Acute (2) Bilateral lower leg cellulitis Status: Acute (3) Cellulitis Status: Acute (4) Cellulitis of both lower extremities Status: Acute (5) Contusion of lower leg, right Status: Acute (6) Diverticulitis of intestine with perforation and abscess Status: Acute (7) Foot contusion Status: Acute (8) Gastroenteritis Status: Acute (9) Hyperglycemia Status: Acute (10) Intractable vomiting Status: Acute (11) Leukocytosis Status: Acute (12) Ovarian mass, right Status: Acute (13) Right arm pain Status: Acute (14) Urinary tract infection Status: Acute (15) UTI (urinary tract infection) Status: Acute (16) Vomiting Status: Acute Review of Systems Constitutional: + weakness, No fever, No chills Respiratory: No cough, No sputum, No shortness of breath Cardiac: No chest pain Abdomen: No pain, No nausea, No vomiting, No diarrhea Heme: No abnormal bleeding/bruising Medications Current Inpatient Medications Medications (Trade) Dose Ordered Sig/Mo Route Start Time Stop Time Status Last Admin Dose Admin Ioversol (Optiray 320) 100 ml UD PRN IV 02/21/17 05:30 02/25/17 05:29 Enoxaparin Sodium (Lovenox Inj) 40 mg Q24H SC 02/21/17 11:30 03/23/17 11:29 02/23/17 11:12 40 MG Acetaminophen (Tylenol Tab) 650 mg Q4H PRN PO 02/21/17 08:45 03/23/17 08:44 Ondansetron HCl (Zofran Inj) 4 mg Q6H PRN IV 02/21/17 08:45 03/23/17 08:44 02/22/17 21:29 4 MG Insulin Aspart (novoLOG ASPART) SLIDING SCALE If C... ACHS SC 02/21/17 11:00 03/23/17 10:59 02/24/17 08:30 3 UNITS Glucose (Glucose 40% Gel) 15-30 GRAMS 15 GRAMS... UD PRN PO 02/21/17 09:00 03/23/17 08:59 Glucose (Glucose Chew Tab) 4-8 Tablets 4 Tabl... UD PRN PO 02/21/17 09:00 03/23/17 08:59 Dextrose (Dextrose 50% 50ML Syringe) 25-50ML OF 50% DW IV FOR... UD PRN IV 02/21/17 09:00 03/23/17 08:59 Glucagon (Glucagon Inj) 1 mg UD PRN SQ 02/21/17 09:00 03/23/17 08:59 Amlodipine Besylate (Norvasc Tab) 5 mg DAILY PO 02/21/17 12:00 03/23/17 11:59 02/24/17 07:48 5 MG Baclofen (Lioresal Tab) 20 mg QID PO 02/21/17 13:00 03/23/17 12:59 02/24/17 07:48 20 MG Docusate Sodium (coLACE CAP) 100 mg BID PO 02/21/17 21:00 03/23/17 20:59 02/24/17 07:48 100 MG Lisinopril (Zestril Tab) 10 mg HS PO 02/21/17 21:00 03/23/17 20:59 02/23/17 22:04 10 MG Sertraline HCl (Zoloft Tab) 25 mg HS PO 02/21/17 21:00 03/23/17 20:59 02/23/17 22:06 25 MG Sertraline HCl (Zoloft Tab) 100 mg HS PO 02/21/17 21:00 03/23/17 20:59 02/23/17 22:06 100 MG Pantoprazole Sodium (Protonix Tab) 40 mg DAILY PO 02/21/17 12:00 03/23/17 11:59 02/24/17 07:48 40 MG Polyethylene (Miralax Powder Packet) 17 gm DAILY PO 02/21/17 12:00 03/23/17 11:59 Tizanidine HCl (Zanaflex Tab) 4 mg TID PO 02/21/17 14:00 03/23/17 13:59 02/24/17 07:48 4 MG Ceftriaxone Sodium 1 gm/ Dextrose 50 ml @ 100 mls/hr Q24H IV 02/22/17 08:00 02/27/17 07:59 02/24/17 07:47 100 MLS/HR Miscellaneous Information (Consult Glycemic Management Pharmacy) 1 ea UD PRN N/A 02/21/17 13:28 03/23/17 13:27 Glatiramer Acetate (Copaxone) 40 mg TuThSa@0800 SQ 02/24/17 08:00 03/26/17 07:59 02/24/17 07:49 40 MG Oxycodone/ Acetaminophen (Percocet 5-325mg Tab) 1 tab Q6H PRN PO 02/24/17 03:00 03/10/17 02:59 Lorazepam (Ativan Inj) 0.5 mg Q4H PRN IV 02/24/17 03:00 03/26/17 02:59 Hydromorphone HCl (Dilaudid Inj) 0.5 mg Q3H PRN IV 02/24/17 03:00 03/10/17 02:59 Lorazepam 0.5 mg/ Syringe 1 ml @ 1 mls/min Q4H PRN IV 02/24/17 03:15 03/26/17 03:14 02/24/17 03:27 1 MLS/MIN Insulin Glargine (Lantus Solostar Pen) 20 units NOW ONCE SC 02/24/17 12:00 02/24/17 12:01 Insulin Glargine (Lantus Solostar Pen) 25 units DAILY SC 02/25/17 09:00 03/27/17 08:59 Objective Vital Signs Date Time Temp Pulse Resp B/P (MAP) Pulse Ox O2 Delivery O2 Flow Rate FiO2 02/24/17 08:15 Room Air 02/24/17 08:05 36.8 84 18 158/75 (102) 98 Room Air 02/24/17 04:00 96 Room Air 02/24/17 00:00 36.8 63 18 95/59 (71) 96 Room Air 02/24/17 00:00 96 Room Air 02/23/17 20:02 36.9 70 18 162/76 (104) 98 Room Air 02/23/17 20:00 Room Air 02/23/17 16:00 Room Air 02/23/17 15:49 36.7 69 16 114/71 (85) 98 Room Air 02/23/17 12:15 Room Air 02/23/17 11:27 36.6 62 18 110/60 (77) 96 Room Air Physical Exam General Appearance: no apparent distress, + pertinent finding (chronic weakness due to MS) Respiratory/Chest: chest non-tender, lungs clear, normal breath sounds, no respiratory distress, no accessory muscle use Cardiovascular: regular rate, rhythm, no edema, no murmur Abdomen: + pertinent finding (+ostomy) Laboratory Results Last 24 Hours Test 02/23/17 11:44 02/23/17 16:19 02/23/17 20:46 02/24/17 05:19 Bedside Glucose 130 mg/dl 104 mg/dl 113 mg/dl White Blood Count 7.37 K/uL Red Blood Count 4.08 M/uL Hemoglobin 13.4 g/dL Hematocrit 37.6 % Mean Corpuscular Volume 92.2 fL Mean Corpuscular Hemoglobin 32.8 pg Mean Corpuscular Hemoglobin Concent 35.6 g/dl RDW Standard Deviation 51.1 fL RDW Coefficient of Variation 15.1 % Platelet Count 206 K/uL Mean Platelet Volume 9.8 fL Sodium Level 142 mmol/L Potassium Level 3.8 mmol/L Chloride Level 113 mmol/L Carbon Dioxide Level 22 mmol/L Anion Gap 7.0 mmol/L Blood Urea Nitrogen 3 mg/dl Creatinine 0.44 mg/dl Est Creatinine Clear Calc Drug Dose 140.3 ml/min Estimated GFR () 123.6 Estimated GFR (Non- 106.7 BUN/Creatinine Ratio 7.3 Random Glucose 88 mg/dl Calcium Level 8.1 mg/dl Test 02/24/17 07:39 Bedside Glucose 80 mg/dl Assessment and Plan This is a 62 year old female with a PMH of MS with complications including significant motor weakness, neurogenic bladder and urinary incontinence, near blindness, hx. of diverticulitis and perforation s/p ostomy, presented due to nausea/vomiting New Onset, Uncontrolled DM2 02/24 sugars are doing better continue Lantus and sliding scale appreciate pharmacy glycemic control consultation diabetic education will likely need insulin on discharge patient's last Ha1c was 6.1% Ha1c from today is 12.2% BSGs > 400 on admission with serum and urinary ketones No anion gap elevation; serum Osm ~ 300 was given 10 units of regular insulin in the ER; BSGs came down to around 300 will recheck PRP, Mg, Phos, serum ketones Lantus 10 units BID and insulin sliding scale diabetic diet; clear liquid diet glycemic control consult diabetic education consult Zofran PRN for nausea UTI, uncomplicated Rocephin x3 days, can stop abx. Pressure Ulcer, R Buttocks/Posterior Thigh patient has difficulty with movement, motor weakness due to MS as per patient's , she is mostly bed bound, with occasional transfers to wheelchair she has multiple pressure ulcers on her buttocks agreed to Tillman catheter which was placed wound care nurse consulted for further management help MS continue current medications for MS if weakness worsens, may need neuro consult Incidental finding of Ovarian Mass likely will need outpatient work-up for this DVT ppx Lovenox DNR will need placement - spoke with patient's - he states he cannot care for her at home any longer
[2017-02-24] MEDS ORDERED: INSULIN GLARGINE SOLOSTAR 100 UNITS/ML 3 ML PEN SC ONE (12:00)
[2017-02-24] MEDS: ENOXAPARIN 40 MG/0.4 ML SYR SC SCH (12:11)
[2017-02-24] MEDS: ONDANSETRON INJ 2 MG/ML 2 ML VIAL IV PRN (13:28)
--- NOTE | 2017-02-24 14:37 | Pharmacy Progress Note ---
Glycemic: Assessment & Plan Date of Service Feb 24, 2017. Assessment & Plan The patient is currently receiving 40 units of insulin per day. BSGs ranging 92 - 130 mg/dl over the past 24hrs. * Basal insulin: Lantus 15 units every 12 hours * Correctional Insulin: Novolog Correction per scale ACHS Goal Range: Low 120 mg/dL - High 160 mg/dL Correction Factor: 20 mg/dL/unit * Prandial insulin: Per carb ratio of 1 unit per 8 grams CHO consumed BSGs continue to improve, will transition to once daily Lantus injections for outpatient dosing. Administer Lantus 20 units today at lunch and then 25 units daily tomorrow. Slight reduction as patient's fasting blood sugar has decreased from 92 mg/dL to 88 mg/dL. Pharmacy will continue to monitor patient daily and write orders per [facility] inpatient glycemic control protocol. Thanks. * Please note that the plan above was derived based on current level of insulin resistance and hospital stress. These recommendations are appropriate for inpatient admission only. Plan of care upon discharge will need to be reassessed to avoid potential outpatient hypo/hyperglycemia.
[2017-02-24] MEDS: SERTRALINE HCL 100 MG TAB PO SCH (21:26)
[2017-02-24] MEDS: LISINOPRIL 10 MG TAB PO SCH (21:27)
[2017-02-24] MEDS: SERTRALINE HCL 50 MG TAB PO SCH (21:27)
[2017-02-25 07:06] VITALS: BP 137/76; PULSE 76; TEMP 37; O2SAT 95
[2017-02-25] MEDS: POLYETHYLENE (MIRALAX) 17 GM PACK PO SCH (07:11)
[2017-02-25] MEDS: PANTOprazole SOD 40 MG TAB PO SCH (07:12)
[2017-02-25] MEDS: DOCUSATE SODIUM 100 MG CAP PO SCH ×2 (07:13→20:45)
[2017-02-25] MEDS: AMLODIPINE BESYLATE 5 MG TAB PO SCH (07:13)
[2017-02-25] MEDS: BACLOFEN 10 MG TAB PO SCH ×4 (07:13→20:48)
[2017-02-25] MEDS: INSULIN ASPART 100 UNITS/ML 3 ML PEN SC SCH ×4 (08:06→20:54)
[2017-02-25] MEDS: INSULIN GLARGINE SOLOSTAR 100 UNITS/ML 3 ML PEN SC SCH (08:07)
--- NOTE | 2017-02-25 09:43 | Progress Note ---
Subjective Date of Service: Feb 25, 2017. Subjective Pt evaluation today including: conversation w/ patient, physical exam, lab review, review of studies, review of inpatient medication list Saw/examined the patient in room 288 No problems to note today Feeling better Problem List Medical Problems: (1) Abdominal pain Status: Acute (2) Bilateral lower leg cellulitis Status: Acute (3) Cellulitis Status: Acute (4) Cellulitis of both lower extremities Status: Acute (5) Contusion of lower leg, right Status: Acute (6) Diverticulitis of intestine with perforation and abscess Status: Acute (7) Foot contusion Status: Acute (8) Gastroenteritis Status: Acute (9) Hyperglycemia Status: Acute (10) Intractable vomiting Status: Acute (11) Leukocytosis Status: Acute (12) Ovarian mass, right Status: Acute (13) Right arm pain Status: Acute (14) Urinary tract infection Status: Acute (15) UTI (urinary tract infection) Status: Acute (16) Vomiting Status: Acute Review of Systems Constitutional: + weakness, No fever, No chills Respiratory: No shortness of breath Cardiac: No chest pain Abdomen: No pain, No nausea, No vomiting, No diarrhea, No constipation, No GI bleeding Medications Current Inpatient Medications Medications (Trade) Dose Ordered Sig/Mo Route Start Time Stop Time Status Last Admin Dose Admin Enoxaparin Sodium (Lovenox Inj) 40 mg Q24H SC 02/21/17 11:30 03/23/17 11:29 02/24/17 12:11 40 MG Acetaminophen (Tylenol Tab) 650 mg Q4H PRN PO 02/21/17 08:45 03/23/17 08:44 Ondansetron HCl (Zofran Inj) 4 mg Q6H PRN IV 02/21/17 08:45 03/23/17 08:44 02/24/17 13:28 4 MG Insulin Aspart (novoLOG ASPART) SLIDING SCALE If C... ACHS SC 02/21/17 11:00 03/23/17 10:59 02/25/17 08:06 6 UNITS Glucose (Glucose 40% Gel) 15-30 GRAMS 15 GRAMS... UD PRN PO 02/21/17 09:00 03/23/17 08:59 Glucose (Glucose Chew Tab) 4-8 Tablets 4 Tabl... UD PRN PO 02/21/17 09:00 03/23/17 08:59 Dextrose (Dextrose 50% 50ML Syringe) 25-50ML OF 50% DW IV FOR... UD PRN IV 02/21/17 09:00 03/23/17 08:59 Glucagon (Glucagon Inj) 1 mg UD PRN SQ 02/21/17 09:00 03/23/17 08:59 Amlodipine Besylate (Norvasc Tab) 5 mg DAILY PO 02/21/17 12:00 03/23/17 11:59 02/25/17 07:13 5 MG Baclofen (Lioresal Tab) 20 mg QID PO 02/21/17 13:00 03/23/17 12:59 02/25/17 07:13 20 MG Docusate Sodium (coLACE CAP) 100 mg BID PO 02/21/17 21:00 03/23/17 20:59 02/25/17 07:13 100 MG Lisinopril (Zestril Tab) 10 mg HS PO 02/21/17 21:00 03/23/17 20:59 02/24/17 21:27 10 MG Sertraline HCl (Zoloft Tab) 25 mg HS PO 02/21/17 21:00 03/23/17 20:59 02/24/17 21:27 25 MG Sertraline HCl (Zoloft Tab) 100 mg HS PO 02/21/17 21:00 03/23/17 20:59 02/24/17 21:26 100 MG Pantoprazole Sodium (Protonix Tab) 40 mg DAILY PO 02/21/17 12:00 03/23/17 11:59 02/25/17 07:12 40 MG Polyethylene (Miralax Powder Packet) 17 gm DAILY PO 02/21/17 12:00 03/23/17 11:59 Tizanidine HCl (Zanaflex Tab) 4 mg TID PO 02/21/17 14:00 03/23/17 13:59 02/25/17 07:12 4 MG Miscellaneous Information (Consult Glycemic Management Pharmacy) 1 ea UD PRN N/A 02/21/17 13:28 03/23/17 13:27 Glatiramer Acetate (Copaxone) 40 mg TuThSa@0800 SQ 02/24/17 08:00 03/26/17 07:59 02/24/17 07:49 40 MG Oxycodone/ Acetaminophen (Percocet 5-325mg Tab) 1 tab Q6H PRN PO 02/24/17 03:00 03/10/17 02:59 Lorazepam (Ativan Inj) 0.5 mg Q4H PRN IV 02/24/17 03:00 03/26/17 02:59 Hydromorphone HCl (Dilaudid Inj) 0.5 mg Q3H PRN IV 02/24/17 03:00 03/10/17 02:59 Lorazepam 0.5 mg/ Syringe 1 ml @ 1 mls/min Q4H PRN IV 02/24/17 03:15 03/26/17 03:14 02/24/17 23:42 1 MLS/MIN Insulin Glargine (Lantus Solostar Pen) 25 units DAILY SC 02/25/17 09:00 03/27/17 08:59 02/25/17 08:07 25 UNITS Objective Vital Signs Date Time Temp Pulse Resp B/P (MAP) Pulse Ox O2 Delivery O2 Flow Rate FiO2 02/25/17 08:15 Room Air 02/25/17 07:06 37.0 76 18 137/76 (96) 95 Room Air 02/25/17 04:00 Room Air 02/25/17 00:00 Room Air 02/24/17 23:25 36.8 71 20 131/75 (93) 95 Room Air 02/24/17 21:25 71 122/72 (89) 02/24/17 20:00 Room Air 02/24/17 19:46 36.9 71 20 110/63 (79) 95 Room Air 02/24/17 16:15 Room Air 02/24/17 15:38 37.0 75 20 136/75 (95) 97 Room Air 02/24/17 12:15 Room Air 02/24/17 11:55 36.5 67 18 111/68 (82) 98 Room Air Physical Exam General Appearance: no apparent distress, + pertinent finding (chronic MS, motor slowing) Respiratory/Chest: no respiratory distress, no accessory muscle use Extremities: normal inspection, no pedal edema Neurologic/Psychiatric: + motor weakness Laboratory Results Last 24 Hours Test 02/24/17 11:40 02/24/17 16:15 8/19/17 20:29 02/25/17 07:12 Bedside Glucose 191 mg/dl 145 mg/dl 165 mg/dl 132 mg/dl Assessment and Plan This is a 62 year old female with a PMH of MS with complications including significant motor weakness, neurogenic bladder and urinary incontinence, near blindness, hx. of diverticulitis and perforation s/p ostomy, presented due to nausea/vomiting New Onset, Uncontrolled DM2 02/25 sugars are better controlled now will need insulin on discharge 02/24 sugars are doing better continue Lantus and sliding scale appreciate pharmacy glycemic control consultation diabetic education will likely need insulin on discharge patient's last Ha1c was 6.1% Ha1c from today is 12.2% BSGs > 400 on admission with serum and urinary ketones No anion gap elevation; serum Osm ~ 300 was given 10 units of regular insulin in the ER; BSGs came down to around 300 will recheck PRP, Mg, Phos, serum ketones Lantus 10 units BID and insulin sliding scale diabetic diet; clear liquid diet glycemic control consult diabetic education consult Zofran PRN for nausea UTI, uncomplicated Rocephin x3 days, can stop abx. Pressure Ulcer, R Buttocks/Posterior Thigh patient has difficulty with movement, motor weakness due to MS as per patient's , she is mostly bed bound, with occasional transfers to wheelchair she has multiple pressure ulcers on her buttocks agreed to Tillman catheter which was placed wound care nurse consulted for further management help MS continue current medications for MS if weakness worsens, may need neuro consult Incidental finding of Ovarian Mass outpatient work-up for this; appreciate OB-outreach professional input DVT ppx Lovenox DNR will need placement - spoke with patient's - he states he cannot care for her at home any longer
[2017-02-25] MEDS: ENOXAPARIN 40 MG/0.4 ML SYR SC SCH (12:13)
[2017-02-25 12:20] VITALS: BP 122/64; PULSE 69; TEMP 37.1; O2SAT 94
[2017-02-25 16:03] VITALS: BP 99/72; PULSE 81; TEMP 36.5; O2SAT 95
[2017-02-25 20:03] VITALS: BP 119/71; PULSE 72; TEMP 37.1; O2SAT 95
[2017-02-25] MEDS: SERTRALINE HCL 100 MG TAB PO SCH (20:46)
[2017-02-25] MEDS: SERTRALINE HCL 50 MG TAB PO SCH (20:47)
[2017-02-25 20:48] VITALS: BP 131/76; PULSE 69
[2017-02-25] MEDS: LISINOPRIL 10 MG TAB PO SCH (20:48)
[2017-02-25 23:18] VITALS: BP 151/77; PULSE 74; TEMP 36.7; O2SAT 95
[2017-02-26] VITALS (7 sets, daily range): BP systolic 113–145; BP diastolic 62–72; PULSE 64–67; TEMP 36.5–36.9; O2SAT 93–96
[2017-02-26] MEDS: DOCUSATE SODIUM 100 MG CAP PO SCH ×2 (08:40→21:20)
[2017-02-26] MEDS: POLYETHYLENE (MIRALAX) 17 GM PACK PO SCH (08:40)
[2017-02-26] MEDS: PANTOprazole SOD 40 MG TAB PO SCH (08:40)
[2017-02-26] MEDS: AMLODIPINE BESYLATE 5 MG TAB PO SCH (08:40)
[2017-02-26] MEDS: BACLOFEN 10 MG TAB PO SCH ×4 (08:40→21:20)
[2017-02-26] MEDS: INSULIN ASPART 100 UNITS/ML 3 ML PEN SC SCH ×4 (08:42→21:22)
[2017-02-26] MEDS: INSULIN GLARGINE SOLOSTAR 100 UNITS/ML 3 ML PEN SC SCH (08:43)
--- NOTE | 2017-02-26 10:49 | Pharmacy Progress Note ---
Glycemic: Assessment & Plan Date of Service Feb 26, 2017. Assessment & Plan ASSESSMENT: * 62 yo F admitted with newly diagnosed diabetes, initiated on basal/bolus regimen which has been titrated based on BSG trend * BSGs have been stable for the past 24 hours, recent change in increase in Lantus dose and tightening of CF/CR seem to be appropriate * Fasting BSG this AM 159 mg/dL, Lunch BSG 179 mg/dL * May need to overall tighten regimen tomorrow, will reassess at that time PLAN: * Basal insulin: * Lantus 25 units daily * Bolus insulin: * Novolog Correction per scale ACHS Goal Range: Low 110 mg/dL - High 140 mg/dL Correction Factor: 20 mg/dL/unit Carb ratio of 1 unit per 7 grams CHO consumed DISCHARGE RECOMMENDATIONS: * Lantus 25 units daily * Novolog 3-5 units with meals * Final numbers TBD closer to discharge Pharmacy will continue to monitor patient daily and write orders per [facility] inpatient glycemic control protocol. Thanks. * Please note that the plan above was derived based on current level of insulin resistance and hospital stress. These recommendations are appropriate for inpatient admission only. Plan of care upon discharge will need to be reassessed to avoid potential outpatient hypo/hyperglycemia.
[2017-02-26] MEDS: ENOXAPARIN 40 MG/0.4 ML SYR SC SCH (12:24)
--- NOTE | 2017-02-26 17:43 | Progress Note ---
Subjective Date of Service: Feb 26, 2017. Subjective Pt evaluation today including: conversation w/ patient, physical exam, lab review, review of studies, review of inpatient medication list Saw/examined the patient in room 288 Spoke with and case management today, discussed the difficulty the is having taking care of the patient at home. I spoke with the patient and afterwards - she is very tearful as is the . she does not have any active or acute complaints at this time Problem List Medical Problems: (1) Abdominal pain Status: Acute (2) Bilateral lower leg cellulitis Status: Acute (3) Cellulitis Status: Acute (4) Cellulitis of both lower extremities Status: Acute (5) Contusion of lower leg, right Status: Acute (6) Diverticulitis of intestine with perforation and abscess Status: Acute (7) Foot contusion Status: Acute (8) Gastroenteritis Status: Acute (9) Hyperglycemia Status: Acute (10) Intractable vomiting Status: Acute (11) Leukocytosis Status: Acute (12) Ovarian mass, right Status: Acute (13) Right arm pain Status: Acute (14) Urinary tract infection Status: Acute (15) UTI (urinary tract infection) Status: Acute (16) Vomiting Status: Acute Review of Systems Constitutional: No fever, No chills Respiratory: No cough, No sputum, No shortness of breath Cardiac: No chest pain Abdomen: No pain, No nausea, No vomiting, No diarrhea Musculoskeletal: + problem reported (buttocks pain) Heme: No abnormal bleeding/bruising Medications Current Inpatient Medications Medications (Trade) Dose Ordered Sig/Mo Route Start Time Stop Time Status Last Admin Dose Admin Enoxaparin Sodium (Lovenox Inj) 40 mg Q24H SC 02/21/17 11:30 03/23/17 11:29 02/26/17 12:24 40 MG Acetaminophen (Tylenol Tab) 650 mg Q4H PRN PO 02/21/17 08:45 03/23/17 08:44 Ondansetron HCl (Zofran Inj) 4 mg Q6H PRN IV 02/21/17 08:45 03/23/17 08:44 02/24/17 13:28 4 MG Insulin Aspart (novoLOG ASPART) SLIDING SCALE If C... ACHS SC 02/21/17 11:00 03/23/17 10:59 02/26/17 12:24 6 UNITS Glucose (Glucose 40% Gel) 15-30 GRAMS 15 GRAMS... UD PRN PO 02/21/17 09:00 03/23/17 08:59 Glucose (Glucose Chew Tab) 4-8 Tablets 4 Tabl... UD PRN PO 02/21/17 09:00 03/23/17 08:59 Dextrose (Dextrose 50% 50ML Syringe) 25-50ML OF 50% DW IV FOR... UD PRN IV 02/21/17 09:00 03/23/17 08:59 Glucagon (Glucagon Inj) 1 mg UD PRN SQ 02/21/17 09:00 03/23/17 08:59 Amlodipine Besylate (Norvasc Tab) 5 mg DAILY PO 02/21/17 12:00 03/23/17 11:59 02/26/17 08:40 5 MG Baclofen (Lioresal Tab) 20 mg QID PO 02/21/17 13:00 03/23/17 12:59 02/26/17 13:06 20 MG Docusate Sodium (coLACE CAP) 100 mg BID PO 02/21/17 21:00 03/23/17 20:59 02/26/17 08:40 100 MG Lisinopril (Zestril Tab) 10 mg HS PO 02/21/17 21:00 03/23/17 20:59 02/25/17 20:48 10 MG Sertraline HCl (Zoloft Tab) 25 mg HS PO 02/21/17 21:00 03/23/17 20:59 02/25/17 20:47 25 MG Sertraline HCl (Zoloft Tab) 100 mg HS PO 02/21/17 21:00 03/23/17 20:59 02/25/17 20:46 100 MG Pantoprazole Sodium (Protonix Tab) 40 mg DAILY PO 02/21/17 12:00 03/23/17 11:59 02/26/17 08:40 40 MG Polyethylene (Miralax Powder Packet) 17 gm DAILY PO 02/21/17 12:00 03/23/17 11:59 Tizanidine HCl (Zanaflex Tab) 4 mg TID PO 02/21/17 14:00 03/23/17 13:59 02/26/17 13:06 4 MG Miscellaneous Information (Consult Glycemic Management Pharmacy) 1 ea UD PRN N/A 02/21/17 13:28 03/23/17 13:27 Glatiramer Acetate (Copaxone) 40 mg TuThSa@0800 SQ 02/24/17 08:00 03/26/17 07:59 02/24/17 07:49 40 MG Oxycodone/ Acetaminophen (Percocet 5-325mg Tab) 1 tab Q6H PRN PO 02/24/17 03:00 03/10/17 02:59 Lorazepam (Ativan Inj) 0.5 mg Q4H PRN IV 02/24/17 03:00 03/26/17 02:59 Hydromorphone HCl (Dilaudid Inj) 0.5 mg Q3H PRN IV 02/24/17 03:00 03/10/17 02:59 Lorazepam 0.5 mg/ Syringe 1 ml @ 1 mls/min Q4H PRN IV 02/24/17 03:15 03/26/17 03:14 02/24/17 23:42 1 MLS/MIN Insulin Glargine (Lantus Solostar Pen) 25 units DAILY SC 02/25/17 09:00 03/27/17 08:59 02/26/17 08:43 25 UNITS Objective Vital Signs Date Time Temp Pulse Resp B/P (MAP) Pulse Ox O2 Delivery O2 Flow Rate FiO2 02/26/17 16:00 95 Room Air 02/26/17 15:21 36.9 64 18 113/63 (80) 95 Room Air 02/26/17 12:30 Room Air 02/26/17 11:15 36.5 65 18 123/68 (86) 96 Room Air 02/26/17 07:45 Room Air 02/26/17 07:14 36.9 67 18 145/62 (89) 93 Room Air 02/26/17 04:00 Room Air 02/26/17 03:36 36.8 64 16 125/72 (89) 95 Room Air 02/26/17 00:00 Room Air 02/25/17 23:18 36.7 74 20 151/77 (101) 95 Room Air 02/25/17 20:48 69 131/76 (94) 02/25/17 20:03 37.1 72 20 119/71 (87) 95 Room Air 02/25/17 20:00 Room Air Physical Exam General Appearance: no apparent distress, + obese Respiratory/Chest: chest non-tender, lungs clear, normal breath sounds, no respiratory distress, no accessory muscle use Cardiovascular: regular rate, rhythm, no edema, no murmur Extremities: normal inspection, no pedal edema Neurologic/Psychiatric: + motor weakness Laboratory Results Last 24 Hours Test 02/25/17 20:32 02/26/17 07:26 02/26/17 11:20 02/26/17 16:20 Bedside Glucose 196 mg/dl 159 mg/dl 179 mg/dl 165 mg/dl Assessment and Plan This is a 62 year old female with a PMH of MS with complications including significant motor weakness, neurogenic bladder and urinary incontinence, near blindness, hx. of diverticulitis and perforation s/p ostomy, presented due to nausea/vomiting New Onset, Uncontrolled DM2 02/26 plan is to discharge to [facility] can continue insulin on discharge 02/25 sugars are better controlled now will need insulin on discharge 02/24 sugars are doing better continue Lantus and sliding scale appreciate pharmacy glycemic control consultation diabetic education will likely need insulin on discharge patient's last Ha1c was 6.1% Ha1c from today is 12.2% BSGs > 400 on admission with serum and urinary ketones No anion gap elevation; serum Osm ~ 300 was given 10 units of regular insulin in the ER; BSGs came down to around 300 will recheck PRP, Mg, Phos, serum ketones Lantus 10 units BID and insulin sliding scale diabetic diet; clear liquid diet glycemic control consult diabetic education consult Zofran PRN for nausea UTI, uncomplicated Rocephin x3 days, can stop abx. Pressure Ulcer, R Buttocks/Posterior Thigh patient has difficulty with movement, motor weakness due to MS as per patient's , she is mostly bed bound, with occasional transfers to wheelchair she has multiple pressure ulcers on her buttocks agreed to Tillman catheter which was placed wound care nurse consulted for further management help MS continue current medications for MS if weakness worsens, may need neuro consult Incidental finding of Ovarian Mass outpatient work-up for this; appreciate OB-nurse obgyn input DVT ppx Lovenox DNR will need placement - spoke with patient's - he states he cannot care for her at home any longer
[2017-02-26] MEDS: SERTRALINE HCL 50 MG TAB PO SCH (21:20)
[2017-02-26] MEDS: LISINOPRIL 10 MG TAB PO SCH (21:20)
[2017-02-26] MEDS: SERTRALINE HCL 100 MG TAB PO SCH (21:20)
[2017-02-27] VITALS (8 sets, daily range): BP systolic 114–131; BP diastolic 55–74; PULSE 62–75; TEMP 36.8–37.1; O2SAT 93–95
[2017-02-27] MEDS: LORAZEPAM INJ 0.5 MG in SYRINGE 0.75 ML IV PRN (00:04)
[2017-02-27] MEDS: GLATIRAMER ACETATE 40 MG/ML SYR SQ SCH (08:00)
[2017-02-27] MEDS: POLYETHYLENE (MIRALAX) 17 GM PACK PO SCH (08:20)
[2017-02-27] MEDS: BACLOFEN 10 MG TAB PO SCH ×4 (08:25→20:57)
[2017-02-27] MEDS: DOCUSATE SODIUM 100 MG CAP PO SCH ×2 (08:25→21:02)
[2017-02-27] MEDS: PANTOprazole SOD 40 MG TAB PO SCH (08:25)
[2017-02-27] MEDS: AMLODIPINE BESYLATE 5 MG TAB PO SCH (08:25)
[2017-02-27] MEDS: INSULIN ASPART 100 UNITS/ML 3 ML PEN SC SCH ×4 (08:28→21:00)
[2017-02-27] MEDS ORDERED: INSULIN GLARGINE SOLOSTAR 100 UNITS/ML 3 ML PEN SC SCH (09:00)
[2017-02-27] MEDS: ENOXAPARIN 40 MG/0.4 ML SYR SC SCH (12:49)
--- NOTE | 2017-02-27 17:00 | Progress Note ---
Subjective Date of Service: Feb 27, 2017. Subjective Pt evaluation today including: conversation w/ patient, physical exam, lab review, review of studies, review of inpatient medication list Saw/examined the patient in room 288 Doing well, no problems/issues to note today; feels fine buttock wound painful at times when she moves Problem List Medical Problems: (1) Abdominal pain Status: Acute (2) Bilateral lower leg cellulitis Status: Acute (3) Cellulitis Status: Acute (4) Cellulitis of both lower extremities Status: Acute (5) Contusion of lower leg, right Status: Acute (6) Diverticulitis of intestine with perforation and abscess Status: Acute (7) Foot contusion Status: Acute (8) Gastroenteritis Status: Acute (9) Hyperglycemia Status: Acute (10) Intractable vomiting Status: Acute (11) Leukocytosis Status: Acute (12) Ovarian mass, right Status: Acute (13) Right arm pain Status: Acute (14) Urinary tract infection Status: Acute (15) UTI (urinary tract infection) Status: Acute (16) Vomiting Status: Acute Review of Systems Constitutional: No fever, No chills Respiratory: No shortness of breath Cardiac: No chest pain Abdomen: No pain, No nausea, No vomiting Medications Current Inpatient Medications Medications (Trade) Dose Ordered Sig/Mo Route Start Time Stop Time Status Last Admin Dose Admin Enoxaparin Sodium (Lovenox Inj) 40 mg Q24H SC 02/21/17 11:30 03/23/17 11:29 02/27/17 12:49 40 MG Acetaminophen (Tylenol Tab) 650 mg Q4H PRN PO 02/21/17 08:45 03/23/17 08:44 Ondansetron HCl (Zofran Inj) 4 mg Q6H PRN IV 02/21/17 08:45 03/23/17 08:44 02/24/17 13:28 4 MG Insulin Aspart (novoLOG ASPART) SLIDING SCALE If C... ACHS SC 02/21/17 11:00 03/23/17 10:59 02/27/17 12:56 11 UNITS Glucose (Glucose 40% Gel) 15-30 GRAMS 15 GRAMS... UD PRN PO 02/21/17 09:00 03/23/17 08:59 Glucose (Glucose Chew Tab) 4-8 Tablets 4 Tabl... UD PRN PO 02/21/17 09:00 03/23/17 08:59 Dextrose (Dextrose 50% 50ML Syringe) 25-50ML OF 50% DW IV FOR... UD PRN IV 02/21/17 09:00 03/23/17 08:59 Glucagon (Glucagon Inj) 1 mg UD PRN SQ 02/21/17 09:00 03/23/17 08:59 Amlodipine Besylate (Norvasc Tab) 5 mg DAILY PO 02/21/17 12:00 03/23/17 11:59 02/27/17 08:25 5 MG Baclofen (Lioresal Tab) 20 mg QID PO 02/21/17 13:00 03/23/17 12:59 02/27/17 12:49 20 MG Docusate Sodium (coLACE CAP) 100 mg BID PO 02/21/17 21:00 03/23/17 20:59 02/27/17 08:25 100 MG Lisinopril (Zestril Tab) 10 mg HS PO 02/21/17 21:00 03/23/17 20:59 02/26/17 21:20 10 MG Sertraline HCl (Zoloft Tab) 25 mg HS PO 02/21/17 21:00 03/23/17 20:59 02/26/17 21:20 25 MG Sertraline HCl (Zoloft Tab) 100 mg HS PO 02/21/17 21:00 03/23/17 20:59 02/26/17 21:20 100 MG Pantoprazole Sodium (Protonix Tab) 40 mg DAILY PO 02/21/17 12:00 03/23/17 11:59 02/27/17 08:25 40 MG Polyethylene (Miralax Powder Packet) 17 gm DAILY PO 02/21/17 12:00 03/23/17 11:59 Tizanidine HCl (Zanaflex Tab) 4 mg TID PO 02/21/17 14:00 03/23/17 13:59 02/27/17 12:49 4 MG Miscellaneous Information (Consult Glycemic Management Pharmacy) 1 ea UD PRN N/A 02/21/17 13:28 03/23/17 13:27 Glatiramer Acetate (Copaxone) 40 mg TuThSa@0800 SQ 02/24/17 08:00 03/26/17 07:59 02/24/17 07:49 40 MG Oxycodone/ Acetaminophen (Percocet 5-325mg Tab) 1 tab Q6H PRN PO 02/24/17 03:00 03/10/17 02:59 Lorazepam (Ativan Inj) 0.5 mg Q4H PRN IV 02/24/17 03:00 03/26/17 02:59 Hydromorphone HCl (Dilaudid Inj) 0.5 mg Q3H PRN IV 02/24/17 03:00 03/10/17 02:59 Lorazepam 0.5 mg/ Syringe 1 ml @ 1 mls/min Q4H PRN IV 02/24/17 03:15 03/26/17 03:14 02/27/17 00:04 1 MLS/MIN Insulin Glargine (Lantus Solostar Pen) 28 units DAILY SC 02/27/17 09:00 03/29/17 08:59 02/27/17 08:29 28 UNITS Objective Vital Signs Date Time Temp Pulse Resp B/P (MAP) Pulse Ox O2 Delivery O2 Flow Rate FiO2 02/27/17 15:52 37.1 75 20 114/67 (83) 94 02/27/17 12:30 Room Air 02/27/17 11:06 37.0 71 18 126/65 (85) 94 Room Air 02/27/17 07:45 Room Air 02/27/17 07:15 37.0 62 18 129/56 (80) 94 Room Air 02/27/17 04:00 95 Room Air 02/27/17 04:00 36.9 64 18 125/60 (81) 95 Room Air 02/27/17 00:00 95 Room Air 02/27/17 00:00 36.8 64 18 121/55 (77) 93 Room Air 02/26/17 20:00 95 Room Air 02/26/17 19:16 36.9 67 16 127/67 (87) 94 Room Air Physical Exam General Appearance: no apparent distress Respiratory/Chest: no respiratory distress, no accessory muscle use Cardiovascular: regular rate, rhythm Neurologic/Psychiatric: + motor weakness (chronic) Laboratory Results Last 24 Hours Test 02/26/17 16:20 02/26/17 20:27 02/27/17 07:31 02/27/17 11:23 Bedside Glucose 165 mg/dl 179 mg/dl 163 mg/dl 192 mg/dl Assessment and Plan This is a 62 year old female with a PMH of MS with complications including significant motor weakness, neurogenic bladder and urinary incontinence, near blindness, hx. of diverticulitis and perforation s/p ostomy, presented due to nausea/vomiting spoke in depth with the patient and patient's difficult situation due to patient's having trouble taking care of the patient Patient tearful about going to a facility CM spoke with family and they have now decided on home hospice [facility] [place], Uncontrolled DM2 02/27 for now, continue insulin if d/c to home hospice, can likely stop this 02/26 plan is to discharge to [facility] can continue insulin on discharge 02/25 sugars are better controlled now will need insulin on discharge 02/24 sugars are doing better continue Lantus and sliding scale appreciate pharmacy glycemic control consultation diabetic education will likely need insulin on discharge patient's last Ha1c was 6.1% Ha1c from today is 12.2% BSGs > 400 on admission with serum and urinary ketones No anion gap elevation; serum Osm ~ 300 was given 10 units of regular insulin in the ER; BSGs came down to around 300 will recheck PRP, Mg, Phos, serum ketones Lantus 10 units BID and insulin sliding scale diabetic diet; clear liquid diet glycemic control consult diabetic education consult Zofran PRN for nausea UTI, uncomplicated Rocephin x3 days, can stop abx. Pressure Ulcer, R Buttocks/Posterior Thigh patient has difficulty with movement, motor weakness due to MS as per patient's , she is mostly bed bound, with occasional transfers to wheelchair she has multiple pressure ulcers on her buttocks agreed to Tillman catheter which was placed wound care nurse consulted for further management help MS continue current medications for MS if weakness worsens, may need neuro consult Incidental finding of Ovarian Mass outpatient work-up for this; appreciate OB-eye specialist input DVT ppx Lovenox DNR will need placement - spoke with patient's - he states he cannot care for her at home any longer
[2017-02-27] MEDS: SERTRALINE HCL 100 MG TAB PO SCH (20:57)
[2017-02-27] MEDS: SERTRALINE HCL 50 MG TAB PO SCH (20:58)
[2017-02-27] MEDS: LISINOPRIL 10 MG TAB PO SCH (20:58)
[2017-02-28 07:04] VITALS: BP 152/80; PULSE 71; TEMP 36.9; O2SAT 94
[2017-02-28] MEDS: INSULIN ASPART 100 UNITS/ML 3 ML PEN SC SCH ×3 (08:19→17:20)
[2017-02-28] MEDS: DOCUSATE SODIUM 100 MG CAP PO SCH (08:21)
[2017-02-28] MEDS: POLYETHYLENE (MIRALAX) 17 GM PACK PO SCH (08:22)
[2017-02-28] MEDS: BACLOFEN 10 MG TAB PO SCH ×3 (08:22→17:37)
[2017-02-28] MEDS: AMLODIPINE BESYLATE 5 MG TAB PO SCH (08:22)
[2017-02-28] MEDS: PANTOprazole SOD 40 MG TAB PO SCH (08:22)
[2017-02-28] MEDS ORDERED: INSULIN GLARGINE SOLOSTAR 100 UNITS/ML 3 ML PEN SC SCH (09:00)
--- NOTE | 2017-02-28 11:16 | Pharmacy Progress Note ---
Glycemic Control Progress Note Date of Service Feb 28, 2017. Scope Glycemic Pharmacist consulted for glycemic control to write orders per [facility] inpatient glycemic control protocol. Objective Accuchecks BSG (last 24hrs): Test 02/27/17 11:23 02/27/17 16:05 02/27/17 20:13 02/28/17 07:30 Bedside Glucose 192 mg/dl (70-90) 165 mg/dl (70-90) 152 mg/dl (70-90) 163 mg/dl (70-90) HbA1c: Test 02/21/17 05:25 Hemoglobin A1c 12.2 % (4.5-5.6) H Recent Pertinent Medications The patient is currently receiving: * Basal insulin: Lantus 28 units SC daily * Correctional Insulin: Novolog Correction per scale ACHS Goal Range: Low 110 mg/dL - High 140 mg/dL Correction Factor: 15 mg/dL/unit * Prandial insulin: Per carb ratio of 1 unit per 7 grams CHO consumed Outpatient Anti-Diabetic Meds N/A Assessment & Plan ASSESSMENT: * 62 yo F admitted with newly diagnosed diabetes, initiated on basal/bolus regimen which has been titrated based on BSG trend * Patient received a total of 60 units of insulin yesterday and BSGs ranged 152- 192 mg/dL * Continue to tighten regimen slightly and reassess over the next 24 hours * I believe we are getting close to having a true estimate of her needs for discharge PLAN: * Basal insulin: increase * Lantus 32 units daily * Bolus insulin: tighten * Novolog Correction per scale ACHS Goal Range: Low 110 mg/dL - High 140 mg/dL Correction Factor: 15 mg/dL/unit Carb ratio of 1 unit per 6 grams CHO consumed DISCHARGE RECOMMENDATIONS: * Lantus 25-30 units daily * Novolog 5 units with meals (could clearly go up on this dose but would leave that to outpatient provider) * Final numbers TBD closer to discharge Pharmacy will continue to monitor patient daily and write orders per [facility] inpatient glycemic control protocol. Thanks. * Please note that the plan above was derived based on current level of insulin resistance and hospital stress. These recommendations are appropriate for inpatient admission only. Plan of care upon discharge will need to be reassessed to avoid potential outpatient hypo/hyperglycemia.
[2017-02-28] MEDS: ENOXAPARIN 40 MG/0.4 ML SYR SC SCH (12:26)
[2017-02-28 14:39] VITALS: BP 133/73; PULSE 75; TEMP 36.9; O2SAT 94
--- NOTE | 2017-02-28 15:52 | Progress Note ---
Subjective Date of Service: Feb 28, 2017. Subjective Pt evaluation today including: conversation w/ patient, physical exam, lab review, review of studies, review of inpatient medication list Saw/examined the patient in room 288 She's doing well today; no problems/issues to note Family in the room with the patient; aware and agree with plan for home hospice Problem List Medical Problems: (1) Abdominal pain Status: Acute (2) Bilateral lower leg cellulitis Status: Acute (3) Cellulitis Status: Acute (4) Cellulitis of both lower extremities Status: Acute (5) Contusion of lower leg, right Status: Acute (6) Diverticulitis of intestine with perforation and abscess Status: Acute (7) Foot contusion Status: Acute (8) Gastroenteritis Status: Acute (9) Hyperglycemia Status: Acute (10) Intractable vomiting Status: Acute (11) Leukocytosis Status: Acute (12) Ovarian mass, right Status: Acute (13) Right arm pain Status: Acute (14) Urinary tract infection Status: Acute (15) UTI (urinary tract infection) Status: Acute (16) Vomiting Status: Acute Review of Systems Constitutional: No fever, No chills Respiratory: No shortness of breath Cardiac: No chest pain, No palpitations Abdomen: No pain, No nausea, No vomiting, No diarrhea Musculoskeletal: + problem reported (pain at the L upper thighs) Heme: No abnormal bleeding/bruising Medications Current Inpatient Medications Medications (Trade) Dose Ordered Sig/Mo Route Start Time Stop Time Status Last Admin Dose Admin Enoxaparin Sodium (Lovenox Inj) 40 mg Q24H SC 02/21/17 11:30 03/23/17 11:29 02/28/17 12:26 40 MG Acetaminophen (Tylenol Tab) 650 mg Q4H PRN PO 02/21/17 08:45 03/23/17 08:44 Ondansetron HCl (Zofran Inj) 4 mg Q6H PRN IV 02/21/17 08:45 03/23/17 08:44 02/24/17 13:28 4 MG Insulin Aspart (novoLOG ASPART) SLIDING SCALE If C... ACHS SC 02/21/17 11:00 03/23/17 10:59 02/28/17 12:26 11 UNITS Glucose (Glucose 40% Gel) 15-30 GRAMS 15 GRAMS... UD PRN PO 02/21/17 09:00 03/23/17 08:59 Glucose (Glucose Chew Tab) 4-8 Tablets 4 Tabl... UD PRN PO 02/21/17 09:00 03/23/17 08:59 Dextrose (Dextrose 50% 50ML Syringe) 25-50ML OF 50% DW IV FOR... UD PRN IV 02/21/17 09:00 03/23/17 08:59 Glucagon (Glucagon Inj) 1 mg UD PRN SQ 02/21/17 09:00 03/23/17 08:59 Amlodipine Besylate (Norvasc Tab) 5 mg DAILY PO 02/21/17 12:00 03/23/17 11:59 02/28/17 08:22 5 MG Baclofen (Lioresal Tab) 20 mg QID PO 02/21/17 13:00 03/23/17 12:59 02/28/17 12:26 20 MG Docusate Sodium (coLACE CAP) 100 mg BID PO 02/21/17 21:00 03/23/17 20:59 02/28/17 08:21 100 MG Lisinopril (Zestril Tab) 10 mg HS PO 02/21/17 21:00 03/23/17 20:59 02/27/17 20:58 10 MG Sertraline HCl (Zoloft Tab) 25 mg HS PO 02/21/17 21:00 03/23/17 20:59 02/27/17 20:58 25 MG Sertraline HCl (Zoloft Tab) 100 mg HS PO 02/21/17 21:00 03/23/17 20:59 02/27/17 20:57 100 MG Pantoprazole Sodium (Protonix Tab) 40 mg DAILY PO 02/21/17 12:00 03/23/17 11:59 02/28/17 08:22 40 MG Polyethylene (Miralax Powder Packet) 17 gm DAILY PO 02/21/17 12:00 03/23/17 11:59 Tizanidine HCl (Zanaflex Tab) 4 mg TID PO 02/21/17 14:00 03/23/17 13:59 02/28/17 14:22 4 MG Miscellaneous Information (Consult Glycemic Management Pharmacy) 1 ea UD PRN N/A 02/21/17 13:28 03/23/17 13:27 Glatiramer Acetate (Copaxone) 40 mg TuThSa@0800 SQ 02/24/17 08:00 03/26/17 07:59 02/24/17 07:49 40 MG Oxycodone/ Acetaminophen (Percocet 5-325mg Tab) 1 tab Q6H PRN PO 02/24/17 03:00 03/10/17 02:59 02/28/17 05:04 1 TAB Lorazepam (Ativan Inj) 0.5 mg Q4H PRN IV 02/24/17 03:00 03/26/17 02:59 Hydromorphone HCl (Dilaudid Inj) 0.5 mg Q3H PRN IV 02/24/17 03:00 03/10/17 02:59 Lorazepam 0.5 mg/ Syringe 1 ml @ 1 mls/min Q4H PRN IV 02/24/17 03:15 03/26/17 03:14 02/27/17 00:04 1 MLS/MIN Insulin Glargine (Lantus Solostar Pen) 32 units DAILY SC 02/28/17 09:00 03/30/17 08:59 02/28/17 08:20 32 UNITS Objective Vital Signs Date Time Temp Pulse Resp B/P (MAP) Pulse Ox O2 Delivery O2 Flow Rate FiO2 02/28/17 14:39 36.9 75 18 133/73 (93) 94 Room Air 02/28/17 08:00 Room Air 02/28/17 07:04 36.9 71 18 152/80 (104) 94 Room Air 02/28/17 00:00 Room Air 02/27/17 23:38 37.0 70 18 131/74 (93) 94 Room Air 02/27/17 20:39 37.1 73 16 120/64 (82) 95 Room Air 02/27/17 16:00 94 Room Air 02/27/17 15:52 37.1 75 20 114/67 (83) 94 Physical Exam General Appearance: no apparent distress Respiratory/Chest: lungs clear, normal breath sounds, no respiratory distress, no accessory muscle use Cardiovascular: regular rate, rhythm Neurologic/Psychiatric: + motor weakness Laboratory Results Last 24 Hours Test 02/27/17 16:05 02/27/17 20:13 02/28/17 07:30 02/28/17 11:23 Bedside Glucose 165 mg/dl 152 mg/dl 163 mg/dl 211 mg/dl Assessment and Plan This is a 62 year old female with a PMH of MS with complications including significant motor weakness, neurogenic bladder and urinary incontinence, near blindness, hx. of diverticulitis and perforation s/p ostomy, presented due to nausea/vomiting Plan to discharge patient today to home with home hospice will discharge with Janumet instead of insulin therapy due to convenience for patient Will keep Tillman catheter in due to urinary incontinence and decubitus ulcer spoke in depth with the patient and patient's difficult situation due to patient's having trouble taking care of the patient Patient tearful about going to a facility CM spoke with family and they have now decided on home hospice [facility] [place], Uncontrolled DM2 02/27 for now, continue insulin if d/c to home hospice, can likely stop this 02/26 plan is to discharge to [facility] can continue insulin on discharge 02/25 sugars are better controlled now will need insulin on discharge 02/24 sugars are doing better continue Lantus and sliding scale appreciate pharmacy glycemic control consultation diabetic education will likely need insulin on discharge patient's last Ha1c was 6.1% Ha1c from today is 12.2% BSGs > 400 on admission with serum and urinary ketones No anion gap elevation; serum Osm ~ 300 was given 10 units of regular insulin in the ER; BSGs came down to around 300 will recheck PRP, Mg, Phos, serum ketones Lantus 10 units BID and insulin sliding scale diabetic diet; clear liquid diet glycemic control consult diabetic education consult Zofran PRN for nausea UTI, uncomplicated Rocephin x3 days, can stop abx. Pressure Ulcer, R Buttocks/Posterior Thigh patient has difficulty with movement, motor weakness due to MS as per patient's , she is mostly bed bound, with occasional transfers to wheelchair she has multiple pressure ulcers on her buttocks agreed to Tillman catheter which was placed wound care nurse consulted for further management help MS continue current medications for MS if weakness worsens, may need neuro consult Incidental finding of Ovarian Mass outpatient work-up for this; appreciate OB-buttonhole marker input DVT ppx Lovenox DNR will need placement - spoke with patient's - he states he cannot care for her at home any longer
[2017-02-28] MEDS ORDERED: TIZA4CAP PO (15:57)
[2017-02-28] MEDS ORDERED: ONDA8TAB62 SL (15:57)
[2017-02-28] MEDS ORDERED: SITA50TA5 PO (15:57)
--- NOTE | 2017-02-28 15:58 | Palliative Care Consultation ---
Consultation Date of Consultation: Feb 28, 2017. Requesting Physician: Dr. Frost Attending Physician: Dr. Frost Reason for Consultation: Hospice History of Present Illness This is a 62 year old female with a PMH of MS with complications including significant motor weakness, neurogenic bladder and urinary incontinence, near blindness, diverticulitis and perforation s/p ostomy, presented to the ED a week ago due to nausea/vomiting. Found to have BSG >400, HbA1c 12.2%- new onset diabetes. Also was treated for UTI with abx. Patient lives home with and is wheelchair bound with urinary incontinence. She has a pressure ulcer on right buttocks and a large area of erythema and peeling skin likely due to moisture. Despite having private caregivers in the home 16 hours/day, 5 days/ week, the patient's is having a more difficult time caring for patient in the home. Mrs. Arceo was going to be placed in [facility], but after discussions with family, patient chose to go home with hospice. Palliative care consulted. I met with patient, Ken, and son in room 288-2. senior benefits manager present as well. Patient confirmed that she wants to go home with hospice and understands the goal is to keep her out of the hospital and keep her comfortable. She has no pain at this time, no nausea/vomiting. Ken stated that he is working on increasing the private caregivers to have some help on the weekends, family members are going to help out now as well. Patient's daughter is a nurses' aid. POLST form completed with family present: DNR, [employer], abx with comfort as the goal, no artificial hydration/nutrition. Past Medical/Surgical History Medical History: Dyslipidemia Fibromyalgia H/o mild Schatzki ring H/O thoracic outlet syndrome History of DVT (deep vein thrombosis) Permanent Comment: RLE May 2015 History of pulmonary embolism Permanent Comment: bilateral 06/2015 Irritable bowel syndrome (IBS) Multiple sclerosis Neurogenic bladder Perforation of sigmoid colon due to diverticulitis Permanent Comment: s/p exploratory laparatomy, sigmoid colectomy and colostomy Stress incontinence, female Surgical Problems: Colostomy in place Colonoscopy Cystoscopy EGD Colectomy Dental surgery Tubal ligation Appendectomy IVC filter Social History Smoking Status: Former Smoker History of Alcohol Use: No Drug Use: none Marital Status: Housing Status: lives with family Occupation Status: retired Review of Systems Constitutional: + weakness Respiratory: No cough, No shortness of breath Cardiac: + edema, No chest pain Abdomen: No pain, No nausea, No vomiting Female : No problem reported (has Tillman catheter) Psychiatric: + depression symptoms, No anxiety Allergies Coded Allergies: Levofloxacin (Verified Allergy, Intermediate, RASH, 02/21/17) as per RN, pt had erythematous rash on abdomen, not there when i saw her pt also complasin of some chest tightness after she got levaquin Chlordiazepoxide (Verified Allergy, Unknown, unsure, 02/21/17) Morphine (Verified Allergy, Unknown, unsure, 02/21/17) has tolerated percocet Sulfa Antibiotics (Verified Allergy, Unknown, Unknown rxn, 02/21/17) Tramadol (Verified Allergy, Unknown, 02/21/17) Medications Current Inpatient Medications Medications (Trade) Dose Ordered Sig/Mo Route Start Time Stop Time Status Last Admin Dose Admin Enoxaparin Sodium (Lovenox Inj) 40 mg Q24H SC 02/21/17 11:30 03/23/17 11:29 02/28/17 12:26 40 MG Acetaminophen (Tylenol Tab) 650 mg Q4H PRN PO 02/21/17 08:45 03/23/17 08:44 Ondansetron HCl (Zofran Inj) 4 mg Q6H PRN IV 02/21/17 08:45 03/23/17 08:44 02/24/17 13:28 4 MG Insulin Aspart (novoLOG ASPART) SLIDING SCALE If C... ACHS SC 02/21/17 11:00 03/23/17 10:59 02/28/17 12:26 11 UNITS Glucose (Glucose 40% Gel) 15-30 GRAMS 15 GRAMS... UD PRN PO 02/21/17 09:00 03/23/17 08:59 Glucose (Glucose Chew Tab) 4-8 Tablets 4 Tabl... UD PRN PO 02/21/17 09:00 03/23/17 08:59 Dextrose (Dextrose 50% 50ML Syringe) 25-50ML OF 50% DW IV FOR... UD PRN IV 02/21/17 09:00 03/23/17 08:59 Glucagon (Glucagon Inj) 1 mg UD PRN SQ 02/21/17 09:00 03/23/17 08:59 Amlodipine Besylate (Norvasc Tab) 5 mg DAILY PO 02/21/17 12:00 03/23/17 11:59 02/28/17 08:22 5 MG Baclofen (Lioresal Tab) 20 mg QID PO 02/21/17 13:00 03/23/17 12:59 02/28/17 12:26 20 MG Docusate Sodium (coLACE CAP) 100 mg BID PO 02/21/17 21:00 03/23/17 20:59 02/28/17 08:21 100 MG Lisinopril (Zestril Tab) 10 mg HS PO 02/21/17 21:00 03/23/17 20:59 02/27/17 20:58 10 MG Sertraline HCl (Zoloft Tab) 25 mg HS PO 02/21/17 21:00 03/23/17 20:59 02/27/17 20:58 25 MG Sertraline HCl (Zoloft Tab) 100 mg HS PO 02/21/17 21:00 03/23/17 20:59 02/27/17 20:57 100 MG Pantoprazole Sodium (Protonix Tab) 40 mg DAILY PO 02/21/17 12:00 03/23/17 11:59 02/28/17 08:22 40 MG Polyethylene (Miralax Powder Packet) 17 gm DAILY PO 02/21/17 12:00 03/23/17 11:59 Tizanidine HCl (Zanaflex Tab) 4 mg TID PO 02/21/17 14:00 03/23/17 13:59 02/28/17 14:22 4 MG Miscellaneous Information (Consult Glycemic Management Pharmacy) 1 ea UD PRN N/A 02/21/17 13:28 03/23/17 13:27 Glatiramer Acetate (Copaxone) 40 mg TuThSa@0800 SQ 02/24/17 08:00 03/26/17 07:59 02/24/17 07:49 40 MG Oxycodone/ Acetaminophen (Percocet 5-325mg Tab) 1 tab Q6H PRN PO 02/24/17 03:00 03/10/17 02:59 02/28/17 05:04 1 TAB Lorazepam (Ativan Inj) 0.5 mg Q4H PRN IV 02/24/17 03:00 03/26/17 02:59 Hydromorphone HCl (Dilaudid Inj) 0.5 mg Q3H PRN IV 02/24/17 03:00 03/10/17 02:59 Lorazepam 0.5 mg/ Syringe 1 ml @ 1 mls/min Q4H PRN IV 02/24/17 03:15 03/26/17 03:14 02/27/17 00:04 1 MLS/MIN Insulin Glargine (Lantus Solostar Pen) 32 units DAILY SC 02/28/17 09:00 03/30/17 08:59 02/28/17 08:20 32 UNITS Physical Exam Date Time Temp Pulse Resp B/P (MAP) Pulse Ox O2 Delivery O2 Flow Rate FiO2 02/28/17 14:39 36.9 75 18 133/73 (93) 94 Room Air 02/28/17 08:00 Room Air 02/28/17 07:04 36.9 71 18 152/80 (104) 94 Room Air 02/28/17 00:00 Room Air 02/27/17 23:38 37.0 70 18 131/74 (93) 94 Room Air 02/27/17 20:39 37.1 73 16 120/64 (82) 95 Room Air 02/27/17 16:00 94 Room Air 02/27/17 15:52 37.1 75 20 114/67 (83) 94 General Appearance: no apparent distress, + obese ENT: hearing grossly normal Neck: supple, no JVD Respiratory: no respiratory distress, no accessory muscle use, + decreased breath sounds Cardiovascular: regular rate, rhythm, + normal peripheral pulses Abdomen: normal bowel sounds, non tender, soft Neurologic/Psychiatric: alert, normal mood/affect, oriented x 3, + pertinent finding (motor weakness) Skin: normal color Laboratory Results Last 24 Hours Test 02/27/17 16:05 02/27/17 20:13 02/28/17 07:30 02/28/17 11:23 Bedside Glucose 165 mg/dl 152 mg/dl 163 mg/dl 211 mg/dl Assessment & Plan Palliative Performance Scale: 40 % Palliative care recs: discussed with patient, Ken, son, and Dr. Frost. -Patient's goal is home with hospice. -POLST completed as follows: DNR, comfort measures only, abx with comfort as the goal, no artificial hydration/nutrition. -Would switch to oral diabetic medication, discontinue insulin for the family's ease of care. -Continue Tillman catheter on discharge due to incontinence and wound/sore on backside. -Continue current medications. - and family will provide patient's care with the help of [facility] caregivers for at least 16 hours/day. -Possible discharge today. Thank you for allowing me to care for this nice patient and her family.
--- NOTE | 2017-02-28 16:01 | Discharge Instructions ---
Discharge Instructions Date of Service Feb 28, 2017. Admission Reason for Admission: Chest Tightness, Hyperglycemia, Uti Discharge Discharge Diagnosis / Problem: DKA, UTI, MS, Decubitus Ulcer Discharge Goals Goal(s): Decrease discomfort, Improve function, Diagnostic testing, Therapeutic intervention Activity Recommendations Activity Limitations: resume your previous activity . Instructions / Follow-Up Instructions / Follow-Up D/c home with home hospice Keep Tillman catheter in place Janumet started for DM2 (no insulin due to convenience) Current Hospital Diet Patient's current hospital diet: Low Fat Diet, Diabetes Type 2 Diet Discharge Diet Recommended Diet: Diabetes Type 2 Diet Pending Studies Studies pending at discharge: no Laboratory Results Hemoglobin A1c Test 02/21/17 05:25 Range/Units Estimated Average Glucose 303 mg/dl Hemoglobin A1c 12.2 H 4.5-5.6 % Lipid Panel Test 02/20/17 13:44 Range/Units Triglycerides Level 404 H 0-150 mg/dl Cholesterol Level 235 H 0-200 mg/dl HDL Cholesterol 30 mg/dl Cholesterol/HDL Ratio 7.8 LDL Cholesterol, Calculated mg/dl Medical Emergencies . Who to Call and When: Medical Emergencies: If at any time you feel your situation is an emergency, please call 911 immediately. . Non-Emergent Contact Non-Emergency issues call your: Primary Care Provider . . "Provider Documentation" section prepared by Zuleyma Frost. . VTE Core Measure Inpt VTE Proph given/why not?: Enoxaparin (Lovenox)SQ
[2017-02-28 16:08] VITALS: BP 133/73; PULSE 75; TEMP 36.9; O2SAT 94
--- NOTE | 2017-02-28 16:08 | Discharge Summary ---
Discharge Summary Date of Service Feb 28, 2017. Discharge Summary Admission Date: Feb 21, 2017 at 08:53 Discharge Date: Feb 28, 2017 Discharge Disposition: Home (home hospice) Principal Diagnosis: DKA, New onset DM2 MS Decubitus Ulcer Medication Reconciliation New Medications: Ondansetron Odt (Zofran Odt) 8 Mg Soltab 8 MG SL Q6H PRN for Nausea for 10 Days, #40 TAB Sitagliptin-Metformin Hcl (Janumet) 1 Tab Tab 1 TAB PO BID for 30 Days, #60 TAB 5 Refills Continued Medications: Baclofen (Lioresal) 10 Mg Tab 20 MG PO QID Docusate Sodium (Colace) 100 Mg Cap 100 MG PO BID Lisinopril (Zestril) 10 Mg Tab 10 MG PO HS Polyethylene Glycol 3350 (Miralax) 1 Pow Pow 17 GM PO DAILY, #255 GM Sertraline Hcl (Zoloft) 25 Mg Tab 25 MG PO HS Sertraline Hcl (Zoloft) 100 Mg Tab 100 MG PO HS Tizanidine (Zanaflex) 4 Mg Cap 4 MG PO TID for 30 Days, #90 CAP (This prescription has been renewed) Discontinued Medications: Amlodipine (Norvasc) 5 Mg Tab 5 MG PO DAILY, TAB Glatiramer Acetate (Copaxone) 40 Mg/Ml Inj 40 MG SQ 3XWK Inject 40 mg subcutaneously 3x per week on Sunday, , and Sunday. Omeprazole (Prilosec) 20 Mg Capcr 20 MG PO DAILY, CAP Admission Information HPI (per Admitting provider): Patient is a 62yo Female with a PMH of Multiple Sclerosis, HTN, h/o diverticulitis and perforation s/p ostomy, h/o UTIs 2/2 neurogenic bladder who presents with nausea and vomiting that started yesterday. Started to experience nausea and vomiting last evening, with associated chills, sweating, abdominal pain and increased urination. Continued overnight until patient was brought in by EMS this morning. During transport to ED, patient was found to be hyperglycemic in the 400s. No prior history of diabetes. Once in ED, patient continued to experience nausea (without vomiting), diffuse abdominal discomfort and increased urination. Patient has a history of multiple UTIs 2/2 neurogenic bladder and usually experiences increased urination with a UTI. Is incontinent most of the time and wears depends. Also endorses a chest "tightness" on the left that is non-radiating and is not worse with inspiration or positional changes. Rates chest tightness as a 6/10. In ED, was found to have a UTI and was started on Rocephin. Also given 10 U regular insulin for hyperglycemia. Was diagnosed with relapsing, remitting MS in late 2014 and has multiple complications including: significant motor weakness, impaired visual acuity bilaterally, neurogenic bladder and some cognitive impairment. Is alert and oriented to person and place at baseline. Physical Exam (per Admitting): General Appearance: + moderate distress (nauseated with any movement on exam ) Head: normocephalic, atraumatic Eyes: normal inspection (decreased visual acuity 2/2 MS) ENT: hearing grossly normal Neck: supple, trachea midline Respiratory/Chest: chest non-tender, lungs clear, normal breath sounds, no respiratory distress Cardiovascular: regular rate, rhythm, no murmur Abdomen/GI: normal bowel sounds (LLQ Ostomy noted without output), soft, no organomegaly, + tenderness (diffusely tender to palpation) Back: normal inspection Extremities/Musculoskelatal: no calf tenderness, no pedal edema, + pertinent finding (Skin breakdown with serosanguinous discharge on the R posterior thigh/buttocks ) Neurologic/Psych: alert ( Alert & oriented to person and place at baseline. ), + motor weakness (Chronic, 2/2 MS. Wheelchair bound, limited use of UE ), + depressed affect Skin: normal color, warm/dry Hospital Course This is a 62 year old female with a PMH of MS with complications including significant motor weakness, neurogenic bladder and urinary incontinence, near blindness, hx. of diverticulitis and perforation s/p ostomy, presented due to nausea/vomiting Plan to discharge patient today to home with home hospice will discharge with Janumet instead of insulin therapy due to convenience for patient Will keep Tillman catheter in due to urinary incontinence and decubitus ulcer spoke in depth with the patient and patient's difficult situation due to patient's having trouble taking care of the patient Patient tearful about going to a facility CM spoke with family and they have now decided on home hospice [place], Uncontrolled DM2 02/27 for now, continue insulin if d/c to home hospice, can likely stop this 02/26 plan is to discharge to [facility] can continue insulin on discharge 02/25 sugars are better controlled now will need insulin on discharge 02/24 sugars are doing better continue Lantus and sliding scale appreciate pharmacy glycemic control consultation diabetic education will likely need insulin on discharge patient's last Ha1c was 6.1% Ha1c from today is 12.2% BSGs > 400 on admission with serum and urinary ketones No anion gap elevation; serum Osm ~ 300 was given 10 units of regular insulin in the ER; BSGs came down to around 300 will recheck PRP, Mg, Phos, serum ketones Lantus 10 units BID and insulin sliding scale diabetic diet; clear liquid diet glycemic control consult diabetic education consult Zofran PRN for nausea UTI, uncomplicated Rocephin x3 days, can stop abx. Pressure Ulcer, R Buttocks/Posterior Thigh patient has difficulty with movement, motor weakness due to MS as per patient's , she is mostly bed bound, with occasional transfers to wheelchair she has multiple pressure ulcers on her buttocks agreed to Tillman catheter which was placed wound care nurse consulted for further management help MS continue current medications for MS if weakness worsens, may need neuro consult Incidental finding of Ovarian Mass outpatient work-up for this; appreciate OB-utility mechanic supervisor input DVT ppx Lovenox DNR will need placement - spoke with patient's - he states he cannot care for her at home any longer Total time spent on discharge = 50 minutes This includes examination of the patient, discharge planning, medication reconciliation, and communication with other providers. Discharge Instructions D/c home with home hospice Keep Tillman catheter in place Janumet started for DM2 (no insulin due to convenience)
== END 2017-02-28 18:00 | disposition hospice, home (50) | DRG 638 ==
LOC: EDBD 05:07 → C.EDB 05:08 → C.MED 08:53 → UNDOADMIN 08:53 → EDBEDREQ 08:58 → ENRESERV 09:48
PROVIDERS: ADMIT Family Medicine; ATTEND Family Medicine
DX: E13.10 Other specified diabetes mellitus with ketoacidosis without coma (principal); N39.0 Urinary tract infection, site not specified; L03.115 Cellulitis of right lower limb; L03.116 Cellulitis of left lower limb; N31.9 Neuromuscular dysfunction of bladder, unspecified; G35 Multiple sclerosis; Z93.3 Colostomy status; E78.5 Hyperlipidemia, unspecified; M79.7 Fibromyalgia; K58.9 Irritable bowel syndrome, unspecified; Z86.711 Personal history of pulmonary embolism; N83.9 Noninflammatory disorder of ovary, fallopian tube and broad ligament, unspecified; I12.9 Hypertensive chronic kidney disease with stage 1 through stage 4 chronic kidney disease, or unspecified chronic kidney disease; Z87.891 Personal history of nicotine dependence; Z88.2 Allergy status to sulfonamides; Z74.09 Other reduced mobility; L89.309 Pressure ulcer of unspecified buttock, unspecified stage; L89.899 Pressure ulcer of other site, unspecified stage; E87.6 Hypokalemia

== ENCOUNTER → 2017-03-09 | Outpatient (CLI) | payer BC, OTHER ==
[~2017-03-09] MED LIST changes: -ASPCH81X PO; -CTP1 PO; -GLAT1INJ SQ; -HYDR-5688 PO; +LISI-461 PO; -MRN25 PO; -MULT-506 PO; -NRV5 PO; -ONDA4TAB46 PO; +ONDA8TAB62 SL; +POLY335019 PO; -PRLSR20 PO; -SERT-234 PO; +SERT100T PO; +SERT25TA PO; +SITA50TA5 PO; -TIZA2CAP PO; +TIZA4CAP PO
[2017-03-09 17:47] LABS: URINE APPEARANCE TURBID (CLEAR); URINE BILIRUBIN NEG (NEG); URINE COLOR DK YELLOW; URINE EPITHELIAL CELL AUTO >30 /lpf (0-5); URINE NITRITE POS (NEG); URINE SPECIFIC GRAVITY 1.025 (1.000-1.030); UROBILINOGEN NEG (NEG)
[2017-03-09 18:00] LABS: MANUAL MICROSCOPIC REQUIRED? NO; REVIEW REQ? YES
--- NOTE | 2017-04-04 10:40 | CODING QUERY NO DIAGNOSIS ---
: 1955 TREATMENT RENDERED WITHOUT A DIAGNOSIS To promote full compliance with coding requirements relating to patient care, physician participation is requested in all cases of information coder uncertainty. Please assist us with providing a diagnosis/symptom for the test(s) below: A diagnosis/symptom was not documented on your Order. A valid diagnosis/symptom is required to bill all insurances. Please remember that we are unable to code a diagnosis of rule out, probable, possible, questionable, or suspected. Tests that require a diagnosis: DOS: 03/09/17 * UA CLEAN CATCH DIAGNOSIS: * URINE CULTURE CLEAN CATCH DIAGNOSIS: Provider Signature: Date: Thank you Julissa Lino Health Information Management Once completed, please kindly fax back to [phone] For questions please call [phone]
== END | disposition home or self-care (01) ==
LOC: C.LABSPEC 12:55
PROVIDERS: ATTEND Neuromusculoskeletal Medicine & OMM
DX: R82.90 Unspecified abnormal findings in urine (principal)

== ENCOUNTER → 2017-03-15 | Outpatient (CLI) | payer BC, OTHER ==
[~2017-03-15] MED LIST changes: -ONDA8TAB62 SL
[2017-03-15 17:33] LABS: BLOOD UREA NITROGEN 20 mg/dl (7-18); BUN/CREATININE RATIO 32.8 (10-20); CALCIUM 9.6 mg/dl (8.5-10.1); CARBON DIOXIDE 22 mmol/L (21-32); CHLORIDE 109 mmol/L (98-107); GLUCOSE 172 mg/dl (70-99); POTASSIUM 4.2 mmol/L (3.5-5.1); SODIUM 139 mmol/L (136-145)
== END | disposition home or self-care (01) ==
LOC: C.LABSPEC 14:55
PROVIDERS: ATTEND Neuromusculoskeletal Medicine & OMM
DX: R30.0 Dysuria (principal); R10.2 Pelvic and perineal pain; N39.0 Urinary tract infection, site not specified